=== PATIENT | male | born 1950 | race Caucasian/White ===

== ENCOUNTER 2020-03-04 15:27 | Outpatient (CLI) | payer MEDICARE, SELFPAY ==
--- NOTE | 2020-03-04 15:45 | USCV_ITS ---
Won Rogers Age: 70 Gender: M : 1950 Exam Date: 03/04/2020 15:48 Ordering Phys: Preston Whitaker MD ([email or web address]) Technologist: Neil Rosenthal [place] [facility] [place]: SOB CHEST PAIN BP: 140 / 86 HR: 82 Rhythm: Sinus Technical Quality: Fair MEASUREMENTS (Male / Female) Normal Values 2D ECHO LV Diastolic Diameter PLAX 3.7 cm 4.2 - 5.9 / 3.9 - 5.3 cm LV Systolic Diameter PLAX 2.3 cm IVS Diastolic Thickness 1.4 cm 0.6 - 1.0 / 0.6 - 0.9 cm IVS Systolic Thickness 1.6 cm LVPW Diastolic Thickness 1.3 cm 0.6 - 1.0 / 0.6 - 0.9 cm LVPW Systolic Thickness 1.6 cm LVOT Diameter 2.1 cm LV Ejection Fraction 2D Teich 70.2 % LV Ejection Fraction MOD 2C 76.2 % LV Ejection Fraction 2C AL 76.7 % LA Diameter 3.9 cm LA Width 2.6 cm LA Height 3.6 cm RA Width 2.8 cm RA Height 3.7 cm Aorta at Sinotubular Diameter 0.9 cm M-MODE LV Diastolic Diameter MM 6.4 cm 4.2 - 5.9 / 3.9 - 5.3 cm LV Systolic Diameter MM 3.6 cm LV Ejection Fraction MM Teich 73.6 % IVS Diastolic Thickness MM 1.0 cm 0.6 - 1.0 / 0.6 - 0.9 cm IVS Systolic Thickness MM 1.4 cm LVPW Diastolic Thickness MM 1.1 cm 0.6 - 1.0 / 0.6 - 0.9 cm LVPW Systolic Thickness MM 1.6 cm RV Diastolic Diameter MM 1.2 cm Aortic Annulus Diameter 3.7 cm LA Ao Ratio MM 1.1 MV E Point Septal Separation 1.0 cm DOPPLER AV Peak Velocity 136.0 cm/s LVOT Peak Velocity 86.0 cm/s AV Area Cont Eq vti 2.3 cm squared AV Area Cont Eq pk 2.1 cm squared MV Area PHT 5.0 cm squared Mitral E to A Ratio 1.0 MV E' Velocity 11.0 cm/s Mitral E to MV E' Ratio 9.4 Mitral E to LV E' Lateral Ratio 7.6 Mitral E to LV E' Septal Ratio 12.2 TR Peak Velocity 145.0 cm/s TR Peak Gradient 8.4 mmHg TV Peak E Velocity 97.0 cm/s Right Atrial Pressure 3.0 mmHg Pulmonary Artery Systolic Pressu 11.4 mmHg PV Peak Velocity 118.0 cm/s FINDINGS Left Ventricle Normal left ventricular cavity size. Normal left ventricular systolic function. No regional wall motion abnormalities. Left ventricular ejection fraction is estimated at 65 %. Grade I/IV diastolic dysfunction (abnormal relaxation filling pattern), normal to mildly elevated filling pressures. Right Ventricle The right ventricle is normal in size and function. Right Atrium The right atrium is normal in size. Left Atrium The left atrium is normal in size. Mitral Valve Structurally normal mitral valve without significant stenosis or prolapse. There is no mitral regurgitation. Aortic Valve Structurally normal aortic valve without significant sclerosis or stenosis. There is no aortic regurgitation. Tricuspid Valve Structurally normal tricuspid valve without significant stenosis or regurgitation. Pulmonary artery systolic pressure is normal. Pulmonic Valve Structurally normal pulmonic valve without significant stenosis. There is no pulmonic regurgitation. Pericardium Normal pericardium without effusion. Aorta Normal ascending aorta dimension. CONCLUSIONS 1-Normal left ventricular cavity size. Normal left ventricular systolic function. No regional wall motion abnormalities. Left ventricular ejection fraction is estimated at 65 %. Grade I/IV diastolic dysfunction (abnormal relaxation filling pattern), normal to mildly elevated filling pressures. 2-There is no pericardial effusion. 3-Pulmonary artery systolic pressure is within normal limits. 4-No significant valve abnormalities. 5-Right atrial pressure is around 5 mm of mercury. 6-No significant change since the prior echocardiogram study of 07/14/2016. Zuly Dai MD (Electronically Signed) Final Date: 04 March 2020 19:16 S
== END 2020-03-04 15:28 | disposition home or self-care (01) ==
LOC: US 15:28
PROVIDERS: Family Provider Family Medicine; PCP Family Medicine; Visit Provider Internal Medicine Cardiovascular Disease
DX: R06.02 Shortness of breath (principal); R07.9 Chest pain, unspecified
CPT/HCPCS: 93306

== ENCOUNTER 2020-05-28 09:12 | Outpatient (CLI) | payer MEDICARE, SELFPAY ==
[2020-05-28 09:23] VITALS: BMI 28.8
--- NOTE | 2020-05-28 09:33 | ECG_ITS ---
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 Interpretive Statements NAME OF STUDY: LEXISCAN SESTAMIBI STRESS TEST INDICATION: [Chest Pain, ] Procedure: At the baseline, the blood pressure was 144/64 mmHg, heart rate of 67 bpm. The electrocardiogram showed normal sinus bradycardia with left axis deviation with normal ST and T's. The Lexiscan was infused over a period of 20 seconds. A total of 0.4 mg of Lexiscan was infused. The stress phase was continued for a total of 5 minutes. Heart rate and blood pressure at stress levels are not available. The EKG at the peak infusion revealed sinus rhythm with no significant ST T wave changes. Sestamibi was injected 20 seconds after the Lexiscan was infused. Blood pressure and heart rates in recovery are not available. EKG at end of recovery phase showed normal sinus rhythm with no significant ST-T wave changes. Conclusion: 1. Normal EKG response to Lexiscan infusion. 2. No Lexiscan induced chest pain or cardiac arrhythmia. 3. Blood pressure and heart rates are not available for assessing stress response. 4. Sestamibi/sestamibi perfusion scan pending; see separate report. Electronically Signed On 06-02-2020 10:00:15 [facility] by Sb Tian M.D. [id number]
--- NOTE | 2020-05-28 09:34 | NMCV_ITS ---
NM juhi perf SPECT r/s* [id number] Won Rogers Age: 70 Gender: M : 1950 Exam Date: 05/28/2020 10:28 Ordering Phys: Tyrese Scherer MD Technologist: CHICO Espana Exam Location: [facility] Indications: CORONARY ARTERY DISEASE STRESS TEST Please [facility] IMAGE PROTOCOL Rest/Stress 1 Radiopharmaceutical Dose (mCi) Administration Site Administered by Rest: Tc-99m 11.0 IV CHICO Espana Sestamibi Stress:Tc-99m 32.9 IV CHICO Brooks Sestamibi Rest: 28-May-2020 60 Discovery 630 Stress: 28-May-2020 30 Discovery 630 SPECT RESULTS Technical Quality: Excellent Raw Data Analysis: Normal Image Corrections: Patient motion artifact - motion correction applied to stress images. Summed Stress Score: 12 Summed Rest Score: 3 Summed Difference Score: 9 PERFUSION FINDINGS There is a moderate in size, severe in intesity partially reversible perfusion defect in the inferior and inferolateral monahan. This likely represents prior infarct with periinfarct inschemia FUNCTIONAL RESULTS (calculated via Gated SPECT) Stress Image LV EF (%): 67 Stress EDV (mL):79 TID: 0.96 Stress ESV (mL):26 FUNCTIONAL FINDINGS: LV systolic function is normal with EF of 67% IMPRESSIONS 1) There is a moderate sized inferior and inferolateral wall partially reversible defect. This likely represents prior infarct with periinfarct ischemia. Clinical correlation is required 2) LV systolic function is normal with EF of 67% Sb Tian MD (Electronically Signed) Final Date: 01 June 2020 16:23 S
[2020-05-28] MEDS: regadenoson 0.4 Mg/5 ml Syringe IVP (11:21)
[2020-05-28 11:22] VITALS: BP 144/64; PULSE 87
== END 2020-05-28 09:13 | disposition home or self-care (01) ==
PROVIDERS: PCP Family Medicine; Visit Provider Family Medicine
DX: I25.10 Atherosclerotic heart disease of native coronary artery without angina pectoris (principal); R07.9 Chest pain, unspecified
CPT/HCPCS: 78452; 93017; A9500; J2785

== ENCOUNTER 2020-09-15 16:03 | Outpatient (CLI) | payer MEDICARE, SELFPAY ==
[2020-09-15 16:53] LABS: Basophils # 0.1 10^3/uL (0.0-0.1); Basophils % 0.7 %; Eosinophils # 0.2 10^3/uL (0.0-0.8); Eosinophils % 2.2 %; Hematocrit 44.8 % (42.0-52.0); Hemoglobin 14.5 g/dL (11.7-16.6); Lymphocytes % 19.4 %; Mean Corpuscular HGB Conc 32.4 g/dL (30.0-36.0); Mean Corpuscular Hemoglobin 31.3 pg (28.0-34.0); Mean Corpuscular Volume 96.6 fL (80-94); Mean Platelet Volume 9.9 fL (7.4-10.4); Monocytes # 0.7 10^3/uL (0.2-0.9); Neutrophils # 7.24 10^3/uL (1.8-7.7); Neutrophils % 70.3 %; Nucleated Red Blood Cells % 0 %; Platelet Count 304 10^3/cmm (130-400); Red Blood Count 4.64 10^6/uL (4.1-5.3); Red Cell Distribution Width 12.8 % (12.1-15.1); White Blood Count 10.3 10^3/uL (4.0-10.0)
[2020-09-15 17:04] LABS: Anion Gap 14.4 (5-19); Blood Urea Nitrogen 18 mg/dL (8-23); Calcium 8.9 mg/dL (8.5-10.5); Carbon Dioxide 27 mmol/L (22-29); Chloride 102 mmol/L (98-107); Glucose 97 mg/dL (65-115); Osmolality Calculated 290 mOsm/kg (285-295); Potassium 4.4 mmol/L (3.5-5.1); Sodium 139 mmol/L (136-145)
[2020-09-15 17:07] LABS: INR 1.13 (0.8-1.2)
== END 2020-09-15 16:04 | disposition home or self-care (01) ==
PROVIDERS: PCP Family Medicine; Visit Provider Internal Medicine
DX: I25.10 Atherosclerotic heart disease of native coronary artery without angina pectoris (principal)
CPT/HCPCS: 36415; 80048; 85025; 85610; 87635

== ENCOUNTER 2020-09-17 01:26 | Inpatient (IN) | payer MEDICARE, SELFPAY ==
[2020-09-17] VITALS (26 sets, daily range): BP systolic 93–185; BP diastolic 49–92; PULSE 72–122; RESP 16–28; TEMP 36.6–37.1; O2SAT 80–96; BMI 29.6
--- NOTE | 2020-09-17 01:27 | XR_ITS ---
WS: [id number] Exam: XR chest 1V portable [id number] Date/Time of Exam: 09/17/2020 1:28 AM Reason For Exam: sob Comparison with previous exams 10/03/2018, 06/28/2018 and 09/06/2016. Chronic appearing infiltrates in the bilateral lower lung zones. The lungs are fully expanded. Normal cardiomediastinal structures and bony elements. No pleural effusions. Recommendations: Short-term follow-up PA and lateral chest radiograph in 5-7 days might be considered for ongoing evaluation if felt to be clinically warranted. XR/XR chest 1V portable [id number] IMPRESSION: 1. Bibasal infiltrates which have been seen on multiple prior exams most likely chronic.
--- NOTE | 2020-09-17 01:40 | ECG_ITS ---
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1950 Requested By: Huong Yang Order Number: [id number] Reading MD: MELODY ALEX Measurements Intervals [place] Rate: 104 P: 73 KS: 182 QRS: -56 QRSD: 88 T: 86 QT: 314 QTc: 414 Interpretive Statements SINUS TACHYCARDIA LEFT AXIS DEVIATION [QRS AXIS < -30] PATTERN CONSISTENT WITH PULMONARY DISEASE Compared to ECG 06/27/2018 21:12:19 No significant changes Electronically Signed On 09-17-2020 20:08:02 LINSEED CAKE TRIMMER by MELODY ALEX [email or web address] regionVilant Systemslake [facility] - [id number] f
--- NOTE | 2020-09-17 01:43 | ED_ITS ---
HPI - COVID General: Chief Complaint: ER Hold Stated Complaint: covid symptoms Time Seen by Provider: 09/17/20 01:32 Source: patient Mode of arrival: ambulatory Limitations: no limitations Triage information: Has fever, cough or shortness of breath . No known COVID + exposure last 14 days History of Present Illness: HPI Narrative: 70-year-old male with a history of COPD states that over the last day he has been having a productive cough and increasing shortness of breath. States had low-grade fevers as well. He states 90 did not feel well and was feeling extremely short of breath. Patient's typically on 2 L. And here he is requiring 4 L at this time. He denies any known sick contacts. Denies any vomiting. States his dyspnea is much worse with exertion COVID 19 common symptoms: positive fever(s), chills, productive cough and dyspnea; negative headache(s), throat pain, nausea, vomiting or diarrhea COVID 19 other sytmptoms: negative chest pain COVID Results: SARS-CoV-2 Antigen (Rapid) Negative (Negative) 09/17/20 01:50 09/17/20 Nasal/Oral Coronavirus 2019 PCR Not detected 09/15/20 15:53 09/15/20 Review of Systems Const: Reports: fever(s) and chills Eyes: Denies: blurry vision or eye discomfort ENMT: Denies: throat pain or dental pain Card: Denies: chest pain Resp: Reports: dyspnea, productive cough and wheezing GI: Denies: abdominal pain, nausea, vomiting or diarrhea : Denies: dysuria Musc: Denies: neck pain or back pain Skin/Breast: Denies: rash Neuro: Denies: headache(s) Psych: Denies: depression Jose/Lymph: Denies: easy bruising All/Imm: Denies: urticaria PFSH ED PFSH: Medical History BPH (benign prostatic hyperplasia) CAD (coronary atherosclerotic disease) Carotid stenosis Cataract (lens) fragments in eye following cataract surgery Chronic constipation COPD (chronic obstructive pulmonary disease) Elevated PSA HTN (hypertension) Hyperlipemia, mixed PAD (peripheral artery disease) S/P angiogram of extremity TIA (transient ischemic attack) Tobacco abuse Surgical History S/P inguinal hernia repair S/P routine circumcision Family History Mother Cancer PANCREATIC CAD (coronary artery disease) Father Lung disease Social History Smoking and tobacco status: former smoker Alcohol intake: former Marital status: service: Yes branch: [employer] Current occupational status: retired Current gender identity: Male Dominga/Yazidi: Other Physical Exam Const: COMMON NORMALS: no acute distress, patient oriented x3 and healthy appearing HENMT: COMMON NORMALS: normocephalic and atraumatic HEAD & SCALP: normocephalic and atraumatic Eye: COMMON NORMALS: Equal, round and reactive pupils present and EOMs intact bilaterally PUPIL: Yes Equal, round and reactive pupils present Neck/C-Spine: COMMON NORMALS: full ROM and supple Chest: COMMONS NORMALS: normal inspection of the chest and normal palpation of entire chest wall Resp: COMMON NORMALS: No retractions, No use of accessory muscles and clear to auscultation bilaterally EFFORT & INSPECTION: Yes tachypneic AUSCULTATION: clear to auscultation bilaterally, rales on the right and wheezes Cardio: COMMON NORMALS: regular rate, regular rhythm and No murmurs present (Cardio) RATE: regular rate RHYTHM: regular rhythm GI: COMMON NORMALS: Normal to inspection, nondistended, normoactive bowel sounds present, Soft to palpation, non-tender and no masses PALPATION: Yes Soft to palpation Extremity: COMMON NORMALS: normal to inspection and full ROM Neuro: COMMON NORMALS: patient oriented x3, moves all extremities and no focal motor deficits Psych: COMMON NORMALS: mental status grossly normal, Normal thought process present and cooperative THOUGHT PROCESS: Normal thought process present Skin: COMMON NORMALS: no rashes or lesions noted and no wounds GENERAL SKIN EXAM: no rashes or lesions noted Course Vital Signs: Vital signs: Vital Signs Temperature 98.7 F 09/17/20 01:33 Pulse Rate 90 09/17/20 02:51 Respiratory Rate 25 H 09/17/20 02:51 Blood Pressure 93/49 09/17/20 02:51 Pulse Oximetry 96 09/17/20 02:51 MDM - COVID MDM Narrative: Medical decision making narrative: Patient presents here with a right lower lobe pneumonia and COPD. Patient does have an elevated white count. Patient's blood pressure here has been stable. Patient started IV to biotics and I spoke to hospitalist and will admit here. Patient's Covid is negative. Lab Data: Labs: Lab Results 09/17/20 09/17/20 09/17/20 Range/Units 01:50 01:50 01:50 WBC 17.7 H (4.0-10.0) 10^3/ uL RBC 4.80 (4.1-5.3) 10^6/u L Hgb 14.9 (11.7-16.6) g/dL Hct 44.9 (42.0-52.0) % MCV 93.5 (80-94) fL MCH 31.0 (28.0-34.0) pg MCHC 33.2 (30.0-36.0) g/dL RDW 12.5 (12.1-15.1) % Plt Count 268 (130-400) 10^3/c mm MPV 10.0 (7.4-10.4) fL Neut % (Auto) 84.8 % Lymph % (Auto) 7.5 % [place] % (Auto) 6.6 % Eos % (Auto) 0.3 % Baso % (Auto) 0.3 % Neut # (Auto) 15.02 H (1.8-7.7) 10^3/u L Lymph # (Auto) 1.3 (0.8-4.8) 10^3/u L [place] # (Auto) 1.2 H (0.2-0.9) 10^3/u L Eos # (Auto) 0.1 (0.0-0.8) 10^3/u L Baso # (Auto) 0.1 (0.0-0.1) 10^3/u L Nucleated RBC % (a uto) 0 % Nucleated RBCs # 0.0 /100WBC Specimen Type Sample Site ABG pH (7.35-7.45) ABG pCO2 (35-45) mmHg ABG pO2 (80.0-100.0) mmH g ABG HCO3 (22-26) mmol/L ABG Base Excess (-2.0-2.0) mmol/ L Husam Test Hematocrit (42-52) % Hgb O2 Saturation (95-100) % Carboxyhemoglobin (0.4-20.1) %THgb Methemoglobin (0.4-1.5) % Total Hemoglobin (14-18) g/dL O2 Delivery Device O2 Liters/Min % Forming Machine Upkeep Mechanic ID Lactic Acid (0.5-2.2) mmol/L Influenza Type A A g Negative (Negative) Influenza Type B A g Negative (Negative) SARS-CoV-2 Ag (Rap id) Negative (Negative) 09/17/20 09/17/20 Range/Units 01:58 02:30 WBC (4.0-10.0) 10^3/ uL RBC (4.1-5.3) 10^6/u L Hgb (11.7-16.6) g/dL Hct (42.0-52.0) % MCV (80-94) fL MCH (28.0-34.0) pg MCHC (30.0-36.0) g/dL RDW (12.1-15.1) % Plt Count (130-400) 10^3/c mm MPV (7.4-10.4) fL Neut % (Auto) % Lymph % (Auto) % [place] % (Auto) % Eos % (Auto) % Baso % (Auto) % Neut # (Auto) (1.8-7.7) 10^3/u L Lymph # (Auto) (0.8-4.8) 10^3/u L [place] # (Auto) (0.2-0.9) 10^3/u L Eos # (Auto) (0.0-0.8) 10^3/u L Baso # (Auto) (0.0-0.1) 10^3/u L Nucleated RBC % (a uto) % Nucleated RBCs # /100WBC Specimen Type Arterial Sample Site Radial, right ABG pH 7.46 H (7.35-7.45) ABG pCO2 32.2 L (35-45) mmHg ABG pO2 63.5 L (80.0-100.0) mmH g ABG HCO3 22.9 (22-26) mmol/L ABG Base Excess -0.2 (-2.0-2.0) mmol/ L Husam Test Pos Hematocrit 45.5 (42-52) % Hgb O2 Saturation 92.7 L (95-100) % Carboxyhemoglobin 1.2 (0.4-20.1) %THgb Methemoglobin 0.9 (0.4-1.5) % Total Hemoglobin 14.9 (14-18) g/dL O2 Delivery Device Nc O2 Liters/Min 4.0 % Forming Machine Upkeep Mechanic ID Harkr Lactic Acid 1.0 (0.5-2.2) mmol/L Influenza Type A A g (Negative) Influenza Type B A g (Negative) SARS-CoV-2 Ag (Rap id) (Negative) Imaging Data: CXR: Attestation: I personally reviewed and interpreted this imaging study as follows: My impression: rll infiltrate COVID Results: SARS-CoV-2 Antigen (Rapid) Negative (Negative) 09/17/20 01:50 09/17/20 Nasal/Oral Coronavirus 2019 PCR Not detected 09/15/20 15:53 09/15/20 Discharge Plan Discharge Patient Disposition: Admitted As Inpatient Admit Provider: Zuly Grajeda Clinical Impression: Pneumonia Qualifiers: Pneumonia type: due to unspecified organism Laterality: right Lung location: lower lobe of lung Qualified Code(s): J18.9 - Pneumonia, unspecified organism Condition: Stable Coding Level of Care Code ED Sap Pi Developer for Susie Fwd Exam Comprehensive
[2020-09-17] MEDS: albuterol 8 gm MDI 2 PUFF INHALATION (01:57)
[2020-09-17 02:09] LABS: ABG PCO2 32.2 mmHg (35-45); ABG PH Result 7.46 (7.35-7.45); Arterial Blood Gas Hematocrit 45.5 % (42-52); Base Excess ABG -0.2 mmol/L (-2.0-2.0); Blood Gas Allen Test Pos; Blood Gas Operator Identificat HARKR; Blood Gas Sample Site Radial, right; Blood Gas Sample Type Arterial; Carboxyhemoglobin 1.2 %THgb (0.4-20.1); HCO3 ABG 22.9 mmol/L (22-26); HGB O2 Sat 92.7 % (95-100); Methemoglobin 0.9 % (0.4-1.5); Oxygen Device NC; PO2 ABG 63.5 mmHg (80.0-100.0); Total Hemoglobin 14.9 g/dL (14-18)
[2020-09-17 02:14] LABS: Basophils # 0.1 10^3/uL (0.0-0.1); Basophils % 0.3 %; Eosinophils # 0.1 10^3/uL (0.0-0.8); Eosinophils % 0.3 %; Hematocrit 44.9 % (42.0-52.0); Hemoglobin 14.9 g/dL (11.7-16.6); Lymphocytes # 1.3 10^3/uL (0.8-4.8); Lymphocytes % 7.5 %; Mean Corpuscular HGB Conc 33.2 g/dL (30.0-36.0); Mean Corpuscular Volume 93.5 fL (80-94); Monocytes # 1.2 10^3/uL (0.2-0.9); Monocytes % 6.6 %; Neutrophils # 15.02 10^3/uL (1.8-7.7); Neutrophils % 84.8 %; Nucleated Red Blood Cells % 0 %; Platelet Count 268 10^3/cmm (130-400); Red Cell Distribution Width 12.5 % (12.1-15.1); White Blood Count 17.7 10^3/uL (4.0-10.0)
[2020-09-17] MEDS: cefTRIAXone 1,000 MG in sodium chloride 0.9% (plus) 50 ML 100 MG IV (02:16)
[2020-09-17 02:31] LABS: Influenza A by IFA Negative (Negative); Influenza B by IFA Negative (Negative); SARS Covid-2 Antigen Negative (Negative)
--- NOTE | 2020-09-17 02:40 | P.HP_ITS ---
Providers/Chief Complaint Primary Care Provider: Tyrese Scherer MD Chief Complaint: covid symptoms History of Present Illness Won Rogers is a 70 year old male with history of oxygen dependent COPD, uses 2 L of oxygen [id number] presented today with chief complaint of worsening shortness of breath. Patient is stating that today he started experiencing abdominal pain and subcostal region which gradually got worse, around noon he started experiencing rigors and chills he try to increase thermostat settings in his home but his chills were not getting better. Around evening he started feeling hot flashes. He has chronic cough he has not noticed increased in frequency or more sputum production but he does endorse chest congestion. No recent fever, sinus congestion or sick contacts. Is currently using nicotine lozenges, does not smoke at all. Is endorsing nausea but denying diarrhea. No headache, myalgias, endorsing swelling of lower extremities. Diagnosis in the ER revealed sepsis with tachypnea, leukocytosis, normal lactic acid right lower lobe pneumonia, he was given community-acquired pneumonia regimen antibiotic in the ER at the time of my evaluation he was saturating well on 4 L nasal cannula no active shortness of breath chest pain or any distress at the time my evaluation, BMP and BNP is pending at the time of this dictation Review of Systems Const: Reports: chills, body aches, change in appetite, fatigue and diaphoresis Eyes: Denies: change in vision ENMT: Denies: throat pain Card: Reports: swelling of feet/ankles; Denies: chest pain, dyspnea on exertion or orthopnea Resp: Reports: dyspnea and non-productive cough GI: Reports: abdominal pain, nausea and constipation; Denies: vomiting or diarrhea : Denies: flank pain Musc: Denies: neck pain Skin/Breast: Denies: rash Neuro: Denies: headache(s) Psych: Denies: anxiety Endo: Denies: polyuria Jose/Lymph: Denies: easy bruising All/Imm: Denies: urticaria Medications/Allergies Home Medications Medication Instructions Recorded Confirmed Last Taken Type fluticasone 250 mcg-salmeterol 50 1 inh INHALATION BID 07/31/19 08/06/20 Unknown History mcg/dose blistr powdr for inhalation latanoprost (PF) 0.005 % eye drops 1 drop OPHTHALMIC (EYE) DAILY ml 07/31/19 08/06/20 Unknown History potassium 99 mg tablet 198 mg PO DAILY tab 01/29/20 08/06/20 Unknown History ibuprofen 600 mg tablet 600 mg PO Q8H PRN 08/06/20 08/06/20 Unknown History amlodipine 10 mg tablet 10 mg PO DAILY #90 tab 09/02/20 Unknown Rx lisinopril 40 mg tablet 40 mg PO DAILY #90 tab 09/02/20 Unknown Rx Allergies Allergy/AdvReac Type Severity Reaction Status Date / Time Qfrgiqq-Tit-Wva Reductase Allergy Unknown Unknown Verified 08/06/20 14:35 Inhibitor PFSH Acute PFSH: Medical History BPH (benign prostatic hyperplasia) CAD (coronary atherosclerotic disease) Carotid stenosis Cataract (lens) fragments in eye following cataract surgery Chronic constipation COPD (chronic obstructive pulmonary disease) Elevated PSA HTN (hypertension) Hyperlipemia, mixed PAD (peripheral artery disease) S/P angiogram of extremity TIA (transient ischemic attack) Tobacco abuse Surgical History S/P inguinal hernia repair S/P routine circumcision Family History Mother Cancer PANCREATIC CAD (coronary artery disease) Father Lung disease Social History Smoking and tobacco status: former smoker Alcohol intake: former Marital status: service: Yes branch: [employer] Current occupational status: retired Current gender identity: Male Dominga/Anglican: Other Vitals/I&O/Wt Last Vital Signs Temp 98.7 F 09/17/20 01:33 Pulse 104 H 09/17/20 02:05 Resp 19 H 09/17/20 01:58 BP 185/92 09/17/20 01:51 Pulse Ox 94 09/17/20 01:58 Weight last 48 hrs Weight 88.451 kg Physical Exam Narrative: EXAM NARRATIVE: Elderly male currently saturating well on 4 L nasal cannula, appears stated age no active distress S1, S2 sinus rhythm no murmur appreciated Abdomen distended central obesity no tenderness Bilateral breath sounds with mild crackles at the base left greater than right I did not hear any wheezing stridor or rhonchi Lower extremity weak dorsalis pedis pulses Appropriate mood and affect No neurological deficit EOMI, PERRLA GCS 15 No joint swelling or pain Data : 09/17/20 02:30 09/17/20 02:30 Micro: Microbiology 09/17/20 02:25 Blood Culture - Preliminary Blood SPECIMEN COLLECTED 09/17/20 02:30 Blood Culture - Preliminary Blood SPECIMEN COLLECTED A&P Assessment and plan (1) Pneumonia: Status: Acute Qualifiers: Laterality: right Lung location: lower lobe of lung Pneumonia type: due to unspecified organism Qualified Code(s): J18.9 - Pneumonia, unspecified organism (2) Sepsis: Status: Acute (3) Acute and chronic respiratory failure with hypoxia: Status: Acute Additional A&P Information Sepsis secondary to community-acquired pneumonia Sepsis criteria met with tachypnea, tachycardia, leukocytosis, normal lactic acid Right lower lobe pneumonia, mild pulmonary vascular congestion noted as well, BMP and BNP is pending Would continue ceftriaxone and azithromycin, check urine antigens, blood cultures Covid antigen negative, influenza negative DuoNeb every 4 as needed Acute on chronic hypoxic respiratory failure: Patient currently is requiring 4 L at home he uses 2 L erlpif-gza-diltl, his most likely is secondary to community-acquired pneumonia, will rule out PE with D-dimer as he is low risk Hypertension: Continue amlodipine and lisinopril currently normotensive COPD exacerbation currently waiting for his nasal cannula oxygen more than his home requirement 2 L, anticipating improvement with antibiotics and prednisone Peripheral vascular disease status post stents: He has CT angiogram scheduled for next week No acute decompensation Would add aspirin and statins Full code DVT prophylaxis Lovenox Cardiac diet Attestations Medical Necessity Statement*: Anticipating stay in the hospital course more than 2 midnights for sepsis, community-acquired pneumonia Time Spent in Patient Care: (>than 50% of time spent in counselling and/or direct pt care on unit) . 50mins Coding Level of Care Code Acute Terrazzo Mechanic Helper for Yeng Fwd Diagnoses Pneumonia J18.9 Laterality: right Lung location: lower lobe of lung Pneumonia type: due to unspecified organism Sepsis A41.9 Acute and chronic respiratory failure with hypoxia J96.21
[2020-09-17] MEDS: azithromycin 500 MG in sodium chloride 0.9% 250 ML 250 MG IV (02:42)
[2020-09-17] MEDS: sodium chloride 0.9% 1,000 ML 999 ML IV (02:44)
[2020-09-17] MEDS: ondansetron 2 mg/ML SDV 2 mL 4 MG IVP (02:52)
[2020-09-17 03:21] LABS: Basophils # 0.1 10^3/uL (0.0-0.1); Basophils % 0.3 %; Eosinophils # 0.1 10^3/uL (0.0-0.8); Eosinophils % 0.4 %; Hematocrit 41.6 % (42.0-52.0); Hemoglobin 13.9 g/dL (11.7-16.6); Lymphocytes # 1.5 10^3/uL (0.8-4.8); Lymphocytes % 8.8 %; Mean Corpuscular HGB Conc 33.4 g/dL (30.0-36.0); Mean Corpuscular Hemoglobin 31.4 pg (28.0-34.0); Mean Corpuscular Volume 93.9 fL (80-94); Mean Platelet Volume 10.3 fL (7.4-10.4); Monocytes # 1.2 10^3/uL (0.2-0.9); Monocytes % 7.2 %; Neutrophils # 14.12 10^3/uL (1.8-7.7); Neutrophils % 82.9 %; Nucleated Red Blood Cells % 0 %; Platelet Count 251 10^3/cmm (130-400); Red Blood Count 4.43 10^6/uL (4.1-5.3); Red Cell Distribution Width 12.5 % (12.1-15.1)
[2020-09-17 03:40] LABS: Alanine Aminotransferase 16 U/L (0-41); Alkaline Phosphatase 110 IU/L (40-130); Aspartate Amino Transferase 22 U/L (0-40); Blood Urea Nitrogen 14 mg/dL (8-23); Calcium 8.8 mg/dL (8.5-10.5); Carbon Dioxide 22 mmol/L (22-29); Chloride 102 mmol/L (98-107); Globulin 2.9 g/dL (1.3-4.6); Glucose 133 mg/dL (65-115); NT Pro B Type Natriuretic Pept 59 pg/mL (0-125); Osmolality Calculated 280 mOsm/kg (285-295); Sodium 134 mmol/L (136-145); Total Bilirubin 1.2 mg/dL (0.15-1.2); Total Protein 6.9 g/dL (6.6-8.7)
[2020-09-17] MEDS: enoxaparin 40 mg/0.4 mL Syringe SUBCUT (04:10)
[2020-09-17] MEDS: ipratropium-albuterol 3 mL Neb INHALATION ×5 (05:28→23:36)
--- NOTE | 2020-09-17 07:37 | PC.NURSE ---
0700- Received report assumed care. No changes noted from report. Resting with lights off. No acute distress. Continue to monitor.
[2020-09-17] MEDS: azithromycin 250 mg Tablet 500 MG PO (09:04)
[2020-09-17] MEDS: amlodipine 10 mg Tablet PO (09:27)
[2020-09-17] MEDS: predniSONE 20 mg Tablet 40 MG PO (09:27)
[2020-09-17] MEDS: aspirin 81 mg EC Tablet PO (10:34)
[2020-09-17] MEDS: lisinopril 20 mg Tablet 40 MG PO (10:35)
--- NOTE | 2020-09-17 11:39 | PC.NURSE ---
Lisinopril dose Report received from ER Nurse. It was verbalized that only 20 mg lisinopril was given due to blood pressure being 116/61. MAR shows 40 mg lisinopril was administered. Blood pressure when patient presented to the floor was 112/57.
--- NOTE | 2020-09-17 12:08 | PC.NURSE ---
When giving schedule med Lisinopril 40 mg. Pt stated he PCP had increased his normal dose to 40 mg, his blood pressure was 116/61. Pt states 40 mg will drop my blood pressure to low. Only 20 mg was given. During report to floor nurse, it was reported that 20mg was given, not 40mg.
--- NOTE | 2020-09-17 13:57 | P.PN_ITS ---
Subjective Subjective: Interval history: History and physical reviewed. Won reports he is short of breath. He reports some chills at home but no fever. He denies any direct exposure to Covid, or personal history of Covid. Medications: Reviewed: Yes Vitals/I&O/Wt Last Vital Signs Temp 98.4 F 09/17/20 11:29 Pulse 84 09/17/20 11:29 Resp 16 09/17/20 11:29 BP 112/57 09/17/20 11:29 Pulse Ox 94 09/17/20 11:29 09/16/20 09/17/20 09/17/20 22:59 06:59 14:59 Intake Total 1300 / 1300 Output Total 300 / 300 Balance 1000 / 1000 Weight last 48 hrs Weight 88.451 kg Physical Exam Narrative: EXAM NARRATIVE: General exam is a white male in mild respiratory distress Cardiovascular regular in rhythm without murmur Lungs bilateral expiratory wheezes and a few coarse breath sounds bilaterally Abdomen is soft nontender with positive bowel sounds Extremities no cyanosis clubbing or edema Data : 09/17/20 02:30 09/17/20 02:30 Micro: Microbiology 09/17/20 04:36 Legionella Urinary Antigen - Final Urine,Voided Bacterial Antigens - Final 09/17/20 02:25 Blood Culture - Preliminary Blood SPECIMEN COLLECTED 09/17/20 02:30 Blood Culture - Preliminary Blood SPECIMEN COLLECTED A&P Assessment and plan (1) Pneumonia: Bibasilar pneumonia seen on chest x-ray Initiated Rocephin and azithromycin on admission Sputum culture Noted patient had a recent Covid PCR on the Note that BNP was normal Status: Acute Qualifiers: Laterality: right Lung location: lower lobe of lung Pneumonia type: due to unspecified organism Qualified Code(s): J18.9 - Pneumonia, unspecified organism (2) Sepsis: Antibiotics as above Blood cultures have been obtained Status: Acute (3) Acute and chronic respiratory failure with hypoxia: Usually on 2 to 3 L at home. Increased oxygen requirement needed on admission. Status: Acute Additional A&P Information Acute COPD exacerbation. Pulmonary toilet. Prednisone 40 mg daily. Wean oxygen as tolerated History of coronary artery disease and from what I understand a work-up is pending for Tuesday with angiogram per cardiology,, Dr. Tian. Placed on aspirin. Apparently intolerant of statins. Hypertension: Continue amlodipine and lisinopril currently normotensive COPD exacerbation currently waiting for his nasal cannula oxygen more than his home requirement 2 L, anticipating improvement with antibiotics and prednisone Full code DVT prophylaxis Lovenox Cardiac diet Attestations Medical Necessity Statement*: Needs continued hospital stay for treatment of acute COPD exacerbation. 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
[2020-09-17] MEDS: latanoprost 0.005% Op Soln 2.5 mL Btl 1 DROP EYE-BOTH (20:38)
[2020-09-18] VITALS (20 sets, daily range): BP systolic 109–148; BP diastolic 52–77; PULSE 63–105; RESP 17–20; TEMP 36.6–36.9; O2SAT 91–97
[2020-09-18] MEDS: cefTRIAXone 1,000 MG in sodium chloride 0.9% (plus) 50 ML 100 MG IV (02:12)
[2020-09-18] MEDS: enoxaparin 40 mg/0.4 mL Syringe SUBCUT (02:15)
[2020-09-18] MEDS: ipratropium-albuterol 3 mL Neb INHALATION ×5 (04:06→20:23)
[2020-09-18] MEDS: amlodipine 10 mg Tablet PO (08:01)
[2020-09-18] MEDS: azithromycin 250 mg Tablet 500 MG PO (08:01)
[2020-09-18] MEDS: lisinopril 20 mg Tablet 40 MG PO (08:01)
[2020-09-18] MEDS: aspirin 81 mg EC Tablet PO (08:01)
[2020-09-18] MEDS: predniSONE 20 mg Tablet 40 MG PO (08:01)
--- NOTE | 2020-09-18 09:13 | P.PN_ITS ---
Documented by User: Kanchan HuberYUE STDASTRID 09/18/20 09:32 Subjective Subjective: Interval history: Won reports he is doing okay. States his breathing is doing better. Has an appointment for angiogram with Dr. Tian tomorrow. Medications: Reviewed: Yes Vitals/I&O/Wt Last Vital Signs Temp 97.9 F 09/18/20 07:33 Pulse 76 09/18/20 08:55 Resp 18 09/18/20 08:47 BP 109/54 09/18/20 07:33 Pulse Ox 96 09/18/20 08:47 09/17/20 09/18/20 09/18/20 22:59 06:59 14:59 Intake Total 240 / 360 50 / 410 120 / 120 Output Total 200 / 200 350 / 550 Balance 40 / 160 -300 / -140 120 / 120 Weight last 48 hrs Weight 88.451 kg Physical Exam Narrative: EXAM NARRATIVE: General: white male in no apparent distress Cardiovascular: regular rate and rhythm, no murmur Lungs: slight coarse breath sounds bilaterally Abdomen: soft, nondistended, nontender to palpation, positive bowel sounds Lower extremities: no cyanosis or edema bilaterally Data : 09/17/20 02:30 09/17/20 02:30 Micro: Microbiology 09/17/20 02:25 Blood Culture - Preliminary Blood NEGATIVE TO DATE 09/17/20 02:30 Blood Culture - Preliminary Blood NEGATIVE TO DATE 09/17/20 04:36 Legionella Urinary Antigen - Final Urine,Voided Bacterial Antigens - Final A&P Assessment and plan (1) Pneumonia: Bibasilar pneumonia seen on chest x-ray Initiated Rocephin and azithromycin on admission Sputum culture Noted patient had a recent Covid PCR on the Note that BNP was normal Status: Acute Qualifiers: Laterality: right Lung location: lower lobe of lung Pneumonia type: due to unspecified organism Qualified Code(s): J18.9 - Pneumonia, unspecified organism (2) Sepsis: Antibiotics as above Blood cultures have been obtained, negative to date. Status: Acute (3) Acute and chronic respiratory failure with hypoxia: Usually on 2 to 3 L at home. Increased oxygen requirement needed on admission. Status: Acute Additional A&P Information Acute COPD exacerbation. Pulmonary toilet. Prednisone 40 mg daily. Wean oxygen as tolerated History of coronary artery disease. Has previously scheduled angiogram with Dr. Tian on 09/19. Placed on aspirin. Apparently intolerant of statins. 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 I reviewed with the patient as well. Medications: Reviewed: Yes Physical Exam Narrative: EXAM NARRATIVE: No changes needed from the exam above. I examined the patient as well. Data : 09/17/20 02:30 09/17/20 02:30 A&P Additional A&P Information Agree with above. Wean oxygen as tolerated. Patient symptomatically improving. White blood cell count elevation likely secondary to steroid use for his COPD exacerbation Cardiology to review and see if he is appropriate for angiogram tomorrow Attestations Medical Necessity Statement*: Needs continued hospitalization for further pulmonary toilet, close monitoring secondary to acute COPD exacerbation and respiratory failure requiring more oxygen than he normally is on at baseline. Coding Level of Care Code Acute Sales And Service Representative [facility] Diagnoses Pneumonia J18.9 Laterality: right Lung location: lower lobe of lung Pneumonia type: due to unspecified organism Sepsis A41.9 Acute and chronic respiratory failure with hypoxia J96.21
--- NOTE | 2020-09-18 15:44 | PC.RESP ---
PULMONARY REHAB INFORMATION SENT TO PATIENT.
[2020-09-18] MEDS: latanoprost 0.005% Op Soln 2.5 mL Btl 1 DROP EYE-BOTH (21:44)
[2020-09-19] VITALS (20 sets, daily range): BP systolic 110–158; BP diastolic 66–81; PULSE 58–93; RESP 16–21; TEMP 36.5–37.1; O2SAT 89–94
[2020-09-19] MEDS: cefTRIAXone 1,000 MG in sodium chloride 0.9% (plus) 50 ML 100 MG IV (02:56)
[2020-09-19] MEDS: enoxaparin 40 mg/0.4 mL Syringe SUBCUT (02:56)
[2020-09-19] MEDS: ipratropium-albuterol 3 mL Neb INHALATION (03:40)
[2020-09-19 05:34] LABS: Basophils % 0.1 %; Eosinophils % 0.1 %; Hematocrit 39.6 % (42.0-52.0); Hemoglobin 12.9 g/dL (11.7-16.6); Lymphocytes # 2.2 10^3/uL (0.8-4.8); Mean Corpuscular HGB Conc 32.6 g/dL (30.0-36.0); Mean Corpuscular Hemoglobin 31.9 pg (28.0-34.0); Mean Corpuscular Volume 97.8 fL (80-94); Mean Platelet Volume 10.5 fL (7.4-10.4); Neutrophils # 13.27 10^3/uL (1.8-7.7); Neutrophils % 79.6 %; Nucleated Red Blood Cells % 0 %; Platelet Count 271 10^3/cmm (130-400); Red Blood Count 4.05 10^6/uL (4.1-5.3); White Blood Count 16.7 10^3/uL (4.0-10.0)
[2020-09-19 05:55] LABS: Alanine Aminotransferase 18 U/L (0-41); Albumin Level 3.5 g/dL (3.5-5.2); Alkaline Phosphatase 80 IU/L (40-130); Anion Gap 16.9 (5-19); Aspartate Amino Transferase 24 U/L (0-40); Blood Urea Nitrogen 17 mg/dL (8-23); Calcium 8.6 mg/dL (8.5-10.5); Carbon Dioxide 25 mmol/L (22-29); Chloride 106 mmol/L (98-107); Globulin 2.8 g/dL (1.3-4.6); Glucose 100 mg/dL (65-115); Osmolality Calculated 300 mOsm/kg (285-295); Potassium 3.9 mmol/L (3.5-5.1); Sodium 144 mmol/L (136-145); Total Bilirubin 0.3 mg/dL (0.15-1.2); Total Protein 6.3 g/dL (6.6-8.7)
--- NOTE | 2020-09-19 06:18 | XACV_ITS ---
Exam Room: [facility] Ht: 173 cm Wt: 88 kg BSA: 2.08 m2 Gender: Male : 1950 Any Known Allergies: Other Exam Priority: Routine Procedure(s): Procedure Description: Diagnostic procedure Procedure Description: Left Heart Catheterization Procedure Description: Left ventriculography Procedure Description: Coronary Angiography Diagnostic Cath Status: Urgent Diagnostic Findings * No significant disease noted in the Left Main, LAD, Circumflex, or RCA coronary arteries. * Coronary angiography shows co-dominance. Conclusions 1. No significant disease noted in the Left Main, LAD, Circumflex, or RCA coronary arteries. 2. Normal left ventricular systolic function. Ejection fraction of 50%. Recommendations * Blood pressure control. * Outpatient cardiology follow up. Interventional RX Recommendation: medical therapy and/or counseling Diagnostic RX Recommendation: medical therapy and/or counseling Anticoagulation: Heparin Ventriculography Ejection Fraction: 50.0 % Pressures Phase:Rest AO : 109 / 50 ( 74 ) @ 1:32:00 AM 162 / 36 ( 90 ) @ 1:35:00 AM 118 / 43 ( 76 ) @ 1:40:00 AM 115 / 46 ( 74 ) @ 1:40:00 AM 119 / 52 ( 81 ) @ 1:40:00 AM LV : 120 / -8 / @ 1:39:00 AM 120 / -6 / @ 1:40:00 AM 122 / -7 / @ 1:40:00 AM Valves Phase:DefaultPhase AV : 3.0 @ 7:47:31 AM AV Mean Gradient: 8.0 @ 7:47:31 AM Clinical Evaluation EBL: 5mL-10mL Procedural Details Procedure Consent Obtained. Pre-Procedure Time Out. Identified patient by full name and date of as verbalized by the patient/guarantor. Does the consent match the physician's order: Yes. Accurate & Complete Informed Consent: Yes. Inpatient/Outpatient History & Physical on Chart: Yes. If H&P is completed, is and addenduem needed: No; If yes, is the addendum complete: N/A. Visualize and Verify Site with Patient/Guarantor: N/A. Relevant Radiology Images available: N/A. Pre-op teaching completed and patient verbalized understanding. The risks, benefits, and alternatives of sedation and/or procedure were discussed by physician. The patient agrees to continue. Procedure started. [facility] Clinical Fraility Score: 3: Managing Well. Die Maintenance Technician Indications: Suspected CAD, abnormal stress test. Chest Pain Symptom Assessment: Atypical Angina. Cardiovascular Instability: No. Correct patient, site and procedure confirmed by cath team. PERRLA. Strong, equal hand exploration manager bilaterally. Lungs clear x 5 lobes. IV Site on Arrival: 20 gauge in the left anticubital. IV Fluids: 0.9% NaCl at KVO. 0 mL infused prior to prosthetic lab technician. Pre Procedural Pulses: bilateral dorsalis pedis was Doppled. Pre Procedural Pulses: bilateral posterior tibial was Doppled. Pre Procedural Pulses: bilateral radial was 3+. Oxygen started at 2liters/min via nasal canula. Baseline sample Acquired. HR: 69 BPM. bilateral groins was prepped with chloroprep then draped in the usual sterile fashion. right radial was prepped with chloroprep then draped in the usual sterile fashion. Physician notified. Equipment: 6F - Radial. Physician arrived. Physician scrubbed in. Immediate Pre-Procedure Time Out. Correct Patient: Yes; Correct Procedure: Yes; Correct Site: Yes; Correct Patient Position: Yes; Correct Supplies: Yes; Dried Flammable Prep: Yes; Blood Products Available: N/A;. Lidocaine 1% infiltrated to the right radial. Arterial access obtained. A 5 pashto TIG catheter in over wire. Multiple views taken of left coronary artery. Catheter redirected to the RCA. Multiple views taken of right coronary artery. Catheter removed over the exchange wire. A 5 pashto Angled Pig catheter in over wire. EDP Sample taken: LV 120/-9,13; HR: 78 BPM; SpO2: 91%. LV gram performed in MELCHOR @ 10 mL/second for a total of 30 mL. EDP Sample taken: LV 120/-6,14; HR: 77 BPM; SpO2: 91%. Pullback taken: LV 122/-8,15; AO 118/43(76); Mean: 8mmHg, Peak to Peak: 3mmHg, SEP: 24sec/min; HR: 77 BPM; SpO2: 90%. Catheter removed over the exchange wire. Physician scrubbed out. A TR Band was successful obtaining hemostatsis at the Right Radial artery insertion site. TR band placed. Hemostasis obtained. Post Procedure: Pulses reassessed and unchanged. PERRLA. Strong, equal hand exploration manager bilaterally. No VTE prophylaxis required. Medication's Wasted: Lidocaine 1% = 18 mL. Medication's Wasted: Nitro = 49.8 mg. Medication's Wasted: Heparin = 1000 units. Total IV fluids: 50 mL. Contrast type used: Omnipaque 300 mgI/mL, 500 mL bottle. Post-op diagnosis: non obstructive CAD. Complications: none. Estimated blood loss: 5mL-10mL. Procedure completed. Patient transferred by wheelchair to CPRU. Vital chart was stopped. Access Site Site: Right Radial artery Sheath Size: 6 Fr Hemostasis Method: TR Band Hemostasis Success: Successful Procedure Medications Start: 7:08 AM Stop: 7:08 AM Medication: Benadryl Amount: 50 mg Route: I.V. Start: 7:20 AM Stop: 7:20 AM Medication: Fentanyl Amount: 50 mcg Route: I.V. Start: 7:24 AM Stop: 7:24 AM Medication: Versed Amount: 1 mg Route: I.V. Start: 7:24 AM Stop: 7:24 AM Medication: Fentanyl Amount: 50 mcg Route: I.V. Start: 7:29 AM Stop: 7:29 AM Medication: Nitrogylcerin Amount: 200 mcg Route: I.A. Start: 7:31 AM Stop: 7:31 AM Medication: Heparin Amount: 5000 units Route: I.V. I, the attending physician, have reviewed and verified all procedure medications. Yes, all medications given per verbal order History/Risk Factors Hypertension: Yes Dyslipidemia: Yes Peripheral Arterial Disease (PAD): Yes Myocardial Infarction (SC): No Obesity: No Renal Disease: No Tobacco Use: Former Prior Interventions PCI: No CABG: No Valve Surgery: No Report Signatures Finalized by Sb Tian MD on 09/28/2020 02:11 PM
--- NOTE | 2020-09-19 07:41 | PC.NURSE ---
AT APPROX 0720 PT WAS TAKEN TO SALES SPECIAL AGENT FOR HIS ANGIOGRAM
--- NOTE | 2020-09-19 08:00 | PC.NURSE ---
Hematoma Pt received from [facility] via w/c, hematoma present above TR band on R wrist. 2nd TR band applied at this time. Radial pulse present. Will monitor.
--- NOTE | 2020-09-19 09:04 | PC.NURSE ---
TR Band 2ml air released from 2nd TR band at this time per protocol. Will monitor.
--- NOTE | 2020-09-19 10:39 | PC.NURSE ---
TR Band Off TR band removed at this time per protocol. No c/o pain. Hematoma boarders marked, no further bleeding noted. Will continue to monitor.
--- NOTE | 2020-09-19 11:25 | PC.NURSE ---
Report called Report called to second floor nurse, all questions answered. Pt transferred back to second floor at this time via w/c.
--- NOTE | 2020-09-19 13:36 | PM.DCS ---
Discharge Providers Date of Admission: 09/17/20 03:04 Date of Discharge: September 19, 2020 Attending Provider at Admission: Zuly Grajeda MD Attending Provider at Discharge: Fuad Campbell MD Primary Care Provider: Tyrese Scherer MD Diagnoses at Discharge Discharge Diagnosis (1) Pneumonia: Status: Acute Qualifiers: Laterality: right Lung location: lower lobe of lung Pneumonia type: due to unspecified organism Qualified Code(s): J18.9 - Pneumonia, unspecified organism (2) Sepsis: Status: Acute (3) Acute and chronic respiratory failure with hypoxia: Status: Acute Reason for Visit Reason for Visit: covid symptoms Hospital Course Hospital Course Won is a 70-year-old white male who presented to the hospital with shortness of breath. He was evaluated in the emergency department and found to have a bibasilar pneumonia, and COPD exacerbation. Rapid Covid was negative as was influenza. He had a very recent Covid on September 15 PCR that was negative as well. With prednisone, pulmonary toilet, and oxygen COPD exacerbation gradually improved. He did undergo angiogram on September 18 secondary to an abnormal stress test. This had previously been scheduled as an outpatient. No flow-limiting disease was noted. Following the angiogram no complications were noted. Angiogram site without significant hematoma. I reviewed his pulmonary status and he was feeling as if he could go back to home and was near his baseline. He was saturating greater than 90% on 3 L. I discussed with him not smoking, taking all medicine as prescribed, and added DuoNeb and a nebulizer to his COPD treatment. Pulmonary rehabilitation could be considered on as an outpatient. He will follow-up with his primary care provider as well as cardiology. He will finish 3 more days of prednisone, 7 days of Levaquin. Physical Exam Narrative: EXAM NARRATIVE: General exam no apparent distress Cardiovascular regular rate and rhythm without murmur Lungs diminished breath sounds bilaterally but clear Abdomen is soft with positive bowel sounds Extremities no cyanosis clubbing or edema, no significant hematoma right wrist. Discharge Data Data Completed and Pending: Completed Studies During Hospitalization Category Date Time Status XR chest 1V mauri ble [id number] Stat Exams 09/17/20 01:27 Completed Pending at discharge Category Date Time Status SPINNER [employer]DRA[employer] request for service Routin e Exams 09/19/20 06:18 Taken Blood Culture Sta t Lab 09/17/20 02:25 Results Sputum Culture an d Gram Stain Routi sc Lab 09/17/20 13:59 Uncollected Labs from last 24 hours 09/19/20 09/19/20 04:43 04:43 WBC 16.7 H RBC 4.05 L Hgb 12.9 Hct 39.6 L MCV 97.8 H MCH 31.9 MCHC 32.6 RDW 13.0 Plt Count 271 MPV 10.5 H Neut % (Auto) 79.6 Lymph % (Auto) 13.0 Wharton % (Auto) 6.0 Eos % (Auto) 0.1 Baso % (Auto) 0.1 Neut # (Auto) 13.27 H Lymph # (Auto) 2.2 Wharton # (Auto) 1.0 H Eos # (Auto) 0.0 Baso # (Auto) 0.0 Nucleated RBC % (a uto) 0 Nucleated RBCs # 0.0 Sodium 144 Potassium 3.9 Chloride 106 Carbon Dioxide 25 Anion Gap 16.9 BUN 17 Creatinine 0.7 GFR Calculation Not Reportable Glucose 100 Calculated Osmolal ity 300 H Calcium 8.6 Total Bilirubin 0.3 AST 24 ALT 18 Alkaline Phosphata se 80 Total Protein 6.3 L Albumin 3.5 Globulin 2.8 Vitals: Last Vital Signs Temp 98.7 F 09/19/20 12:00 Pulse 63 09/19/20 12:00 Resp 18 09/19/20 12:00 BP 133/67 09/19/20 12:00 Pulse Ox 91 09/19/20 12:00 Discharge Plan Discharge Patient Disposition: Home Condition: Stable Prescriptions: New ipratropium-albuterol 0.5 mg-3 mg(2.5 mg base)/3 mL solution for nebulization 3 ml inhalation Q6H Qty: 180 RF: 0 prednisone 20 mg Tablet 40 mg PO DAILY Qty: 6 RF: 0 levofloxacin 750 mg tablet 750 mg PO DAILY 7 Days Qty: 7 RF: 0 Continued fluticasone propion-salmeterol [Advair Diskus] 250-50 mcg/dose blister with device 1 inh INHALATION BID RF: 0 latanoprost 0.005 % drops 1 drp ophthalmic (eye) BEDTIME RF: 0 Vitamin C 1,000 mg Tablet 1,000 mg PO DAILY RF: 0 amlodipine 5 mg tablet 5 mg PO BID@ RF: 0 lisinopril 40 mg Tablet 20 mg PO BID@ RF: 0 Vitamin D3 25 mcg (1,000 unit) Capsule See Rx Instructions .ROUTE .COMPLEX RF: 0 potassium gluconate 595 mg (99 mg) Tablet 595 mg PO BID@ RF: 0 calcium 1 tab PO PRN RF: 0 Discontinued ibuprofen 200 mg Tablet 800 mg PO BID PRN (Reason: Pain) RF: 0 Discharge Orders: Discharge Order (Routine); Ordered 09/19/20 Ordered By: Fuad Campbell Other Ambulatory Orders: DME: Nebulizer with Neb Kit (Order) Location: None Selected Ordered By: Fuad Campbell Referrals: [facility] [Outside] Sb Tian M.D [Physician] - 7-10 days (follow up angiogram) Tyrese Scherer MD [Primary Care Provider] - 4-7 days Discharge Diet: Cardiac Discharge Activity: Increase activity as tolerated Patient Instructions: Left Heart Catheterization (DC) Activity Restrictions/Additional Instructions: Take all medicine as prescribed Discharge Attestations Time Spent in Discharge Care*: greater than 30 min Quality Metrics Clinical Quality Measures During this hospital stay, did patient experience: None Coding Level of Care Code Acute Vp Outcomes for g Fwd Diagnoses Pneumonia J18.9 Laterality: right Lung location: lower lobe of lung Pneumonia type: due to unspecified organism Sepsis A41.9 Acute and chronic respiratory failure with hypoxia J96.21
--- NOTE | 2020-09-19 13:50 | PC.NURSE ---
AT APPROX 1130 PT ARRIVED BACK TO THE FLOOR FROM [facility]
== END 2020-09-19 15:00 | disposition home or self-care (01) | DRG 871 ==
LOC: ER 02:50 → ER IP 03:04 → MEDSURG 09:28
PROVIDERS: Internal Medicine; Admitting Provider Internal Medicine; Emergency Provider Emergency Medicine; PCP Family Medicine; Visit Provider Internal Medicine
PROC: 4A023N7 Measurement of Cardiac Sampling and Pressure, Left Heart, Percutaneous Approach (ICD-10-PCS; principal; 2020-09-19 07:00)
DX: A41.9 Sepsis, unspecified organism (principal); J96.21 Acute and chronic respiratory failure with hypoxia; J18.9 Pneumonia, unspecified organism; J44.0 Chronic obstructive pulmonary disease with (acute) lower respiratory infection; J44.1 Chronic obstructive pulmonary disease with (acute) exacerbation; I25.10 Atherosclerotic heart disease of native coronary artery without angina pectoris; Z88.8 Allergy status to other drugs, medicaments and biological substances; Z99.81 Dependence on supplemental oxygen; N40.0 Benign prostatic hyperplasia without lower urinary tract symptoms; I65.29 Occlusion and stenosis of unspecified carotid artery; K59.09 Other constipation; R97.20 Elevated prostate specific antigen [PSA]; I10 Essential (primary) hypertension; E78.5 Hyperlipidemia, unspecified; I73.9 Peripheral vascular disease, unspecified; Z86.73 Personal history of transient ischemic attack (TIA), and cerebral infarction without residual deficits; Z87.891 Personal history of nicotine dependence; Z95.820 Peripheral vascular angioplasty status with implants and grafts
CPT/HCPCS: 12345; 36415; 36600; 71045; 80048; 80053; 82805; 83605; 83880; 85025; 85610; 86403; 87040; 87426; 87449; 87635; 87804; 93005; 93452; 94640; 96365; 96367; 96372; 96375; 99285; C1769; C1887; C1894; J0456; J0696; J1200; J1644; J1650; J2250; J2405; J2930; J3010; J3490; J3535; J7030; J7050; J7512; Q0144; Q9967

== ENCOUNTER 2020-11-05 10:52 | Outpatient (CLI) | payer MEDICARE, SELFPAY ==
[2020-11-05 11:26] LABS: Basophils # 0.1 10^3/uL (0.0-0.1); Basophils % 0.5 %; Eosinophils # 0.1 10^3/uL (0.0-0.8); Eosinophils % 0.5 %; Hematocrit 46.7 % (42.0-52.0); Lymphocytes # 1.4 10^3/uL (0.8-4.8); Lymphocytes % 12.3 %; Mean Corpuscular HGB Conc 32.1 g/dL (30.0-36.0); Mean Corpuscular Hemoglobin 31.1 pg (28.0-34.0); Mean Corpuscular Volume 96.9 fL (80-94); Mean Platelet Volume 9.7 fL (7.4-10.4); Monocytes # 0.6 10^3/uL (0.2-0.9); Monocytes % 5.1 %; Neutrophils # 9.28 10^3/uL (1.8-7.7); Neutrophils % 80.6 %; Nucleated Red Blood Cells % 0 %; Platelet Count 319 10^3/cmm (130-400); Red Blood Count 4.82 10^6/uL (4.1-5.3); Red Cell Distribution Width 12.6 % (12.1-15.1); White Blood Count 11.5 10^3/uL (4.0-10.0)
[2020-11-06 17:42] LABS: Alternaria Alternata (M6) Ige <0.10 kU/L; Alternaria Class 0; Bermuda Class 0; Bermuda Grass (G2) Ige <0.10 kU/L; Cat Dander (E1) Ige <0.10 kU/L; Cat Dander Class 0; Common Ragweed (Short) (W1) Ig <0.10 kU/L; D. Farinae Class 0; Dermatophagoides Class 0; Dermatophagoides Farinae (D2) <0.10 kU/L; Dermatophagoides Pteronyssinus <0.10 kU/L; Dog Dander (E5) Ige <0.10 kU/L; Dog Dander Class 0; Elm (T8) Ige <0.10 kU/L; Elm Class 0; English Plantain (W9) Ige <0.10 kU/L; English Plantain Class 0; House Dust (Greer) (H1) Ige <0.10 kU/L; House Dust (Hollister- Stier) <0.10 kU/L; House Dust Class 0; Immunoglobulin E 5 kU/L (<OR=114); Johnson Grass (G10) Ige <0.10 kU/L; Johnson Grass Cl 0; June Grass Class 0; June Grass(Kentucky Blue) (G8) <0.10 kU/L; Lamb'S Quarters (Goose Foot) <0.10 kU/L; Lamb'S Quarters Class 0; Maple (Box Elder) (T1) Ige <0.10 kU/L; Maple Class 0; Meadow Fescue (G4) Ige <0.10 kU/L; Meadow Fescue Class 0; Mucor Racemosus Class 0; Oak (T7) Ige <0.10 kU/L; Oak Class 0; Orchard Grass (Cocksfoot) (G3) <0.10 kU/L; Penicillium Class 0; Penicillium Notatum (M1) Ige <0.10 kU/L; Perennial Rye Grass (G5) Ige <0.10 kU/L; Perennial Rye Grass Class 0; Ragweeed Class 0; Rough Marsh Elder (W16) Ige <0.10 kU/L; Rough Marsh Elder Class 0; Sweet Vernal Class 0; Sweet Vernal Grass (G1) Ige <0.10 kU/L; Timothy Grass (G6) Ige <0.10 kU/L; Timothy Grass Class 0
[2020-11-07 19:56] LABS: Aspergillus Fumigatus, Igg Ab, 64.2 mg/L (<=102)
== END 2020-11-05 10:53 | disposition home or self-care (01) ==
LOC: LAB 11:01
PROVIDERS: PCP Family Medicine; Visit Provider Internal Medicine Pulmonary Disease
DX: J44.9 Chronic obstructive pulmonary disease, unspecified (principal); R06.02 Shortness of breath; J30.2 Other seasonal allergic rhinitis
CPT/HCPCS: 36415; 82785; 85025; 86003

== ENCOUNTER → 2020-11-20 13:33 | Outpatient (BNVA) | payer MEDICARE, SELFPAY | PROVIDERS: PCP Family Medicine; Visit Provider Internal Medicine Pulmonary Disease | DX: Z20.822 Contact with and (suspected) exposure to COVID-19 (principal) | CPT/HCPCS: 87635 ==

== ENCOUNTER 2020-11-24 07:47 | Outpatient (CLI) | payer MEDICARE, SELFPAY ==
--- NOTE | 2020-11-24 07:57 | CT_ITS ---
WS: [id number] LDCT LUNG CANCER SCREENING TECHNIQUE: Noncontrast CT of the chest with coronal and sagittal reformatted images. CLINICAL INFORMATION: NICOTINE DEPENDENCE,CIGARETTES COMPARISON: None. DLP: 60.13 mGy.cm DIvol: 1.[address] scans at [facility] use at least one of these dose optimization techniques: automat ed exposure control; mA and/or kV adjustment per patient size (includes targeted exams where dose is matched to clinical indication); or iterative reconstruction. FINDINGS: Mild chronic emphysematous changes. No acute pulmonary infiltrates. No consolidation or pleural fluid . No mediastinal or hilar lymphadenopathy. Aortic calcification. Coronary calcification. No axillary lymphadenopathy. Adrenal glands are normal. Normal GE junction. Tiny 2 mm nodule right upper lobe. Hare bsegmental atelectasis the lung bases. CT/CT lung screening [id number] IMPRESSION: LUNG-RADS: 2-Benign Appearance or Behavior FOLLOW UP: 12 Month: Continue annual screening with LDCT
--- NOTE | 2020-11-24 09:53 | PFTS_ITS ---
Date of Study:11/24/20 Date of Dictation: MECHANICS: Forced vital capacity (FVC) is normal. Forced expiratory volume in one second (FEV1) is reduced. FEV1/FVC is reduced. FLOW VOLUME LOOP: Reduced flow at all lung volumes with significant scooping. LUNG VOLUMES: Total lung capacity (TLC) is reduced. Residual volume (RV) is reduced. DIFFUSING CAPACITY FOR CARBON MONOXIDE: Severely reduced. INTERPRETATION: The postbronchodilator spirometry is consistent with moderate airflow obstruction. There is no significant postbronchodilator response. The lung volumes are consistent with restrictive lung disease. Gas exchange (DLCO) is severely reduced. MTDD
== END 2020-11-24 07:48 | disposition home or self-care (01) ==
LOC: RAD 07:50
PROVIDERS: PCP Family Medicine; Visit Provider Internal Medicine Pulmonary Disease
DX: Z12.2 Encounter for screening for malignant neoplasm of respiratory organs (principal); F17.210 Nicotine dependence, cigarettes, uncomplicated; J44.9 Chronic obstructive pulmonary disease, unspecified; J30.2 Other seasonal allergic rhinitis
CPT/HCPCS: 71271; 94060; 94618; 94726; 94729; J7611

== ENCOUNTER 2020-12-15 14:22 | Outpatient (CLI) | payer MEDICARE, SELFPAY ==
[2020-12-15 15:46] LABS: C Reactive Protein 7.1 mg/L (0.0-4.9)
[2020-12-15 16:01] LABS: Erythrocyte Sedimentation Rate 19 mm/hr (0-10)
[2020-12-16 12:13] LABS: Anti-Double Strand DNA AB <1 IU/mL; Centromere B Antibody <1.0 NEG AI (<1.0 NEG); Cyclic Citrullinated Peptide <16 UNITS; JO-1 Antibody <1.0 NEG AI (<1.0 NEG); SS A Ro Sjogrens Antibody 1.2 POS AI (<1.0 NEG); SS-B/LA IGG <1.0 NEG AI (<1.0 NEG); Sm/RNP Antibody <1.0 NEG AI (<1.0 NEG); Smith Antibody <1.0 NEG AI (<1.0 NEG)
== END 2020-12-15 14:23 | disposition home or self-care (01) ==
LOC: LAB 14:33
PROVIDERS: PCP Family Medicine; Visit Provider Internal Medicine Pulmonary Disease
DX: R06.00 Dyspnea, unspecified (principal); J98.4 Other disorders of lung
CPT/HCPCS: 36415; 85651; 86140; 86225; 86235; 86431

== ENCOUNTER 2021-01-01 14:11 | Outpatient (CLI) | payer MEDICARE, SELFPAY | END 2021-01-01 14:12 | disposition home or self-care (01) | PROVIDERS: PCP Family Medicine; Visit Provider Internal Medicine Pulmonary Disease | DX: R06.00 Dyspnea, unspecified (principal); J98.4 Other disorders of lung | CPT/HCPCS: 36415; 83516 ==

== ENCOUNTER → 2021-11-06 08:51 | Outpatient (BNVA) | payer MEDICARE, SELFPAY | PROVIDERS: PCP Family Medicine; Visit Provider Nurse Practitioner Family | DX: I10 Essential (primary) hypertension (principal); Z87.891 Personal history of nicotine dependence | CPT/HCPCS: 99213 ==

== ENCOUNTER → 2021-12-14 14:09 | Outpatient (BNVA) | payer MEDICARE, SELFPAY | PROVIDERS: PCP Family Medicine; Visit Provider Internal Medicine Pulmonary Disease | DX: J43.2 Centrilobular emphysema (principal); J30.2 Other seasonal allergic rhinitis; R06.00 Dyspnea, unspecified; Z12.2 Encounter for screening for malignant neoplasm of respiratory organs; Z71.6 Tobacco abuse counseling; I10 Essential (primary) hypertension; E78.5 Hyperlipidemia, unspecified; Z99.81 Dependence on supplemental oxygen; Z87.891 Personal history of nicotine dependence | CPT/HCPCS: 99214 ==

== ENCOUNTER 2022-02-01 10:21 | Emergency (ER) | payer MEDICARE, SELFPAY ==
[2022-02-01 10:51] VITALS: BP 135/71; PULSE 108; RESP 20; TEMP 37.9; O2SAT 91; BMI 29.3
--- NOTE | 2022-02-01 12:08 | ED_ITS ---
HPI - General Adult General: Chief complaint: General Medical Stated complaint: ABd pains, sob, fever Time Seen by Provider: 02/01/22 11:40 History of Present Illness: Patient is a 72-year-old male with a history of chronic bronchitis and emphysema on 3L of oxygen at baseline, hypertension who presents the emergency room for evaluation of generalized body ache, cough, left lower quadrant dull pain, nausea, and fatigue x3 days. Patient tells me that he has had intermittent cough shortness of breath and cough for the last 2 weeks that has acutely worsened last 3 days. In addition, patient reports fever and chills at home. Patient denies any sick contact. Denies any loss of taste or smell. Patient also denies any diarrhea. Patient denies any nausea or vomiting or pain with p.o. intake. Patient has intermittent left upper quadrant abdominal pain for the last 3 days. In the past, patient has had history of pneumonia most recently last year for which he was hospitalized with oxygen. Onset: 3 days ago Duration:3 days Location:home Severity:moderate Associated symptoms: Reports malaise; Deny chest pain, dyspnea, nausea, rash, palpitations or vomiting Review of Systems Const: Reports: fever(s), chills, fatigue, malaise and other (+generalized weakness) Eyes: Denies: change in vision ENMT: Denies: mouth pain Card: Denies: chest pain or palpitations Resp: Reports: non-productive cough; Denies: dyspnea GI: Denies: abdominal pain, nausea, vomiting or diarrhea : Denies: dysuria Musc: Denies: extremity pain Skin/Breast: Denies: rash or new lesions Neuro: Denies: weakness in extremities Psych: Reports: other (Normal mood) Jose/Lymph: Denies: easy bruising PFS ED PFSH: Medical History BPH (benign prostatic hyperplasia) CAD (coronary atherosclerotic disease) Carotid stenosis Cataract (lens) fragments in eye following cataract surgery Chronic constipation COPD (chronic obstructive pulmonary disease) Elevated PSA HTN (hypertension) Hyperlipemia, mixed PAD (peripheral artery disease) S/P angiogram of extremity TIA (transient ischemic attack) Tobacco abuse Surgical History S/P inguinal hernia repair S/P routine circumcision Family History Mother Cancer PANCREATIC CAD (coronary artery disease) Father Lung disease Social History Smoking and tobacco status: former smoker Quit status (tobacco): has quit using tobacco Year quit tobacco: 2016 [id number] Second hand smoke exposure: Yes Smoking risk assessment/counseling performed?: Yes Alcohol intake: former Year of sobriety/quit date alcohol: 1986 Lives independently: Yes Housing: House Marital status: Number of children: 0 Highest education level completed: Some College, No Degree service: Yes branch: [employer] Current occupational status: retired Pets and animals: No History of recent travel: No Current gender identity: Male Dominga/Cheondoism: Other Physical Exam Const: COMMON NORMALS: alert HENMT: COMMON NORMALS: atraumatic HEAD & SCALP: atraumatic MOUTH: moist mucous membranes not abnormal Eye: COMMON NORMALS: EOMs intact bilaterally and conjunctivae normal CONJUNCTIVA: Yes conjunctivae normal Neck/C-Spine: COMMON NORMALS: full ROM and supple Resp: COMMON NORMALS: normal respiratory effort and clear to auscultation bilaterally AUSCULTATION: clear to auscultation bilaterally Cardio: COMMON NORMALS: regular rate RATE: regular rate GI: COMMON NORMALS: Soft to palpation and non-tender PALPATION: Yes Soft to palpation Extremity: COMMON NORMALS: full ROM Neuro: SENSORIUM/ORIENTATION: Yes alert MOTOR EXAM: No Abnormal motor strength present and Other motor observations present (no focal motor deficits) Psych: COMMON NORMALS: speech normal SPEECH: Yes normal speech MOOD & AFFECT: Yes euthymic mood Course Vital Signs: Vital signs: Vital Signs Temperature 98.9 F 02/01/22 15:07 Pulse Rate 84 02/01/22 15:07 Respiratory Rate 20 H 02/01/22 10:51 Blood Pressure 146/66 02/01/22 15:07 Pulse Oximetry 94 02/01/22 15:07 [facility] - General Adult Medical Decision Making 72-year-old male with history of chronic bronchitis and emphysema on 3L of ox ygen at baseline, prior pneumonia, hypertension presenting to the emergency room with 3 days of dyspnea, generalized weakness, malaise, fever and chills, and body aches. On physical exam, patient is hemodynamically stable without any signs of respiratory distress. Lungs appear clear bilaterally. Patient is noted to have white count 21.3 up from baseline of 13K to 17K. X-ray did not show any focal pneumonia. However patient is noted to have bilateral atelectasis. In setting of low-grade fever and elevated white count prior history of pneumonia, will cover patient apparently with antibiotics. Patient received Augmentin doxycycline in the emergency room. Patient initially was observed to set it be satting at 91 to 92% on room air. However 3 L oxygen, patient is at baseline with O2 sats between 94 to 95%. Rx doxycycline and augmentin for early pneumonia Disposition: Discharge. Patient counseled regarding diagnostic impression, treatment plan. Patient given ED strict return precautions to return for continuation, worsening, or development of new symptoms. Instructed to f/u w/ P CP regarding symptoms today. Patient verbalized understanding. Patient is given strict return precaution for any signs of worsening symptoms including fever, respiratory distress, or any external complaints. Lab Data : 02/01/22 11:52 02/01/22 11:52 Radiology Impressions Chest X-Ray 02/01/22 12:14 IMPRESSION: Mild bibasilar subsegmental atelectasis. Laboratory Results WBC 21.3 10^3/uL (4.0-10.0) H 02/01/22 11:52 RBC 5.18 10^6/uL (4.1-5.3) 02/01/22 11:52 Hgb 16.1 g/dL (11.7-16.6) 02/01/22 11:52 Hct 49.2 % (42.0-52.0) 02/01/22 11:52 MCV 95.0 fl (80-94) H 02/01/22 11:52 MCH 31.1 pg (28.0-34.0) 02/01/22 11:52 MCHC 32.7 g/dL (30.0-36.0) 02/01/22 11:52 RDW 12.8 % (12.1-15.1) 02/01/22 11:52 Plt Count 273 10^3/cmm (130-400) 02/01/22 11:52 MPV 10.0 fL (7.4-10.4) 02/01/22 11:52 Neut % (Auto) 87.6 % 02/01/22 11:52 Lymph % (Auto) 4.6 % 02/01/22 11:52 [place] % (Auto) 6.7 % 02/01/22 11:52 Eos % (Auto) 0.1 % 02/01/22 11:52 Baso % (Auto) 0.3 % 02/01/22 11:52 Neut # (Auto) 18.69 10^3/uL (1.8-7.7) H 02/01/22 11:52 Lymph # (Auto) 1.0 10^3/uL (0.8-4.8) 02/01/22 11:52 [place] # (Auto) 1.4 10^3/uL (0.2-0.9) H 02/01/22 11:52 Eos # (Auto) 0.0 10^3/uL (0.0-0.8) 02/01/22 11:52 Baso # (Auto) 0.1 10^3/uL (0.0-0.1) 02/01/22 11:52 Nucleated RBC % (auto) 0 % 02/01/22 11:52 Nucleated RBCs # 0.0 /100WBC 02/01/22 11:52 Sodium 135 mmol/L (136-145) L 02/01/22 11:52 Potassium 4.3 mmol/L (3.5-5.1) 02/01/22 11:52 Chloride 96 mmol/L (98-107) L 02/01/22 11:52 Carbon Dioxide 23 mmol/L (22-29) 02/01/22 11:52 Anion Gap 20.3 (5-19) H 02/01/22 11:52 BUN 10 mg/dL (8-23) 02/01/22 11:52 Creatinine 0.9 mg/dL (0.7-1.2) 02/01/22 11:52 GFR Calculation Not Reportable 02/01/22 11:52 Glucose 109 mg/dL (65-115) 02/01/22 11:52 Calculated Osmolality 280 mOsm/kg (285-295) L 02/01/22 11:52 Calcium 9.5 mg/dL (8.5-10.5) 02/01/22 11:52 Total Bilirubin 1.3 mg/dL (0.15-1.2) H 02/01/22 11:52 AST 16 U/L (0-40) 02/01/22 11:52 ALT 12 U/L (0-41) 02/01/22 11:52 Alkaline Phosphatase 128 IU/L (40-130) 02/01/22 11:52 Troponin T Gen 5 ng/L 24 ng/L (0-15) H 02/01/22 14:55 Troponin T Baseline 29 ng/L (0-15) H 02/01/22 11:52 C-Reactive Protein 80.2 mg/L (0.0-4.9) H 02/01/22 11:52 Total Protein 8.3 g/dL (6.6-8.7) 02/01/22 11:52 Albumin 4.7 g/dL (3.5-5.2) 02/01/22 11:52 Globulin 3.6 g/dL (1.3-4.6) 02/01/22 11:52 Lipase 21 U/L (13-60) 02/01/22 11:52 Procalcitonin 0.14 ng/mL (0-0.5) 02/01/22 11:52 Influenza Type A Ag Negative (Negative) 02/01/22 12:55 Influenza Type B Ag Negative (Negative) 02/01/22 12:55 Imaging Data Other Imaging: Radiologist's impression: [address] [address] XRay Report Signed Patient: Won Rogers Unit #: [id number] : 1950 Age/Sex: 72 / M ADM Date: 02/01/22 Loc: ER Room/Bed: Attending Dr: Ordering Provider/Ordering MD: Angel Cristobal MD Date of Service: 02/01/22 Procedure(s): XR chest 2V* [id number] Accession Number(s): [id number] Report Number: [id number] PROCEDURE INFORMATION: Exam: XR Chest Exam date and time: 02/01/2022 12:18 PM Age: 72 years old Clinical indication: Dyspnea and shortness of breath; Patient HX: SOB for years but getting worse. PT states he has a HX of copd TECHNIQUE: Imaging protocol: Radiologic exam of the chest. Views: Frontal and lateral upright, 2 views. COMPARISON: CR XR chest 1V portable [id number] 09/17/2020 1:28 AM FINDINGS: Lungs: Mild bibasilar subsegmental atelectasis. The lungs are otherwise peripherally clear bilaterally. The pulmonary vasculature is normal. Pleural spaces:? No pleural effusion. No pneumothorax. Heart/Mediastinum: The heart is normal in size and contour. Mediastinum: Stable. Vasculature: Moderate aortic arch atherosclerotic calcification without ectasia. Bones/joints: Diffuse osteopenia. Degenerative disk disease is present at mid-thoracic spine disk levels. XR/XR chest 2V* [id number] IMPRESSION: Mild bibasilar subsegmental atelectasis. ? Dictated By: Rajat Vasquez MD Signed By: Rajat Vasquez MD Signed Date/Time: 02/01/22 1327 DD/ 1218 Discharge Plan Discharge Patient Disposition: Home Clinical Impression: Cough, Fever, Body aches, Fatigue Condition: Stable Prescriptions: New amoxicillin-pot clavulanate 875-125 mg tablet 1 tab PO BID 10 Days Qty: 20 0RF doxycycline hyclate 100 mg tablet 100 mg PO BID 10 Days Qty: 20 0RF No Action ipratropium-albuterol 0.5 mg-3 mg(2.5 mg base)/3 mL solution for nebulization 3 ml inhalation Q6H Qty: 180 5RF lisinopril 20 mg tablet See Rx Instructions PO BID Qty: 60 3RF Rx Instructions: 20mg in the AM, 10mg in the PM PO twice a day; Spiriva Respimat 2.5 mcg/actuation mist 2 puff inhalation DAILY Qty: 4 3RF fluticasone propion-salmeterol [Advair Diskus] 500-50 mcg/dose blister with device 1 inh inhalation BID Qty: 60 3RF amlodipine 2.5 mg tablet 5 mg PO DAILY PRN (Reason: hypertension) Qty: 120 1RF Rx Instructions: may take up to 2 tablets daily for hypertension. monitor BP. latanoprost 0.005 % drops 1 drp ophthalmic (eye) BEDTIME 0RF Vitamin C 1,000 mg Tablet 1,000 mg PO DAILY 0RF Vitamin D3 25 mcg (1,000 unit) Capsule See Rx Instructions .ROUTE .COMPLEX 0RF Rx Instructions: 2,000 units po qam and 1,000 units qpm potassium gluconate 595 mg (99 mg) Tablet 595 mg PO BID@,18 0RF calcium 1 tab PO PRN 0RF Discharge Orders: Discharge ED (Routine); Ordered 02/01/22 Ordered By: Angel Cristobal Referrals: Tyrese Scherer MD [Primary Care Provider] - Discharge Diet: Advance as tolerated Discharge Activity: Increase activity as tolerated Patient Instructions: Fever in Adults (ED), Acute Cough (ED) Activity Restrictions/Additional Instructions: Come back to the emergency room if your symptoms worsen, have any shortness of breath, fever/chills, dehydration, inability tolerate food or drinks, any difficulty breathing, or any new or concerning complaints. Please take your antibiotics as instructed. Watch out for signs of skin changes/redness, mouth redeness or swelling, nausea/vomiting, diarrhea, blood in the urine or any new or concering complaints. Coding Level of Care Code ED Materials Tech for Susie Fwd Exam Comprehensive
--- NOTE | 2022-02-01 12:10 | ECG_ITS ---
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 Measurements Intervals [place] Rate: 82 P: 10 FL: 184 QRS: -60 QRSD: 90 T: 61 QT: 378 QTc: 442 Interpretive Statements SINUS RHYTHM PATTERN CONSISTENT WITH PULMONARY DISEASE LEFT ANTERIOR FASCICULAR BLOCK [QRS AXIS <= -45, QR IN I, RS IN II] Compared to ECG 02/01/2022 14:50:19 Myocardial infarct finding no longer present Electronically Signed On 02-01-2022 18:20:39 CDT by Sb Tian M.D. [id number]
--- NOTE | 2022-02-01 12:14 | XRR_ITS ---
PROCEDURE INFORMATION: Exam: XR Chest Exam date and time: 02/01/2022 12:18 PM Age: 72 years old Clinical indication: Dyspnea and shortness of breath; Patient HX: SOB for years but getting worse. PT states he has a HX of copd TECHNIQUE: Imaging protocol: Radiologic exam of the chest. Views: Frontal and lateral upright, 2 views. COMPARISON: CR XR chest 1V portable [id number] 09/17/2020 1:28 AM FINDINGS: Lungs: Mild bibasilar subsegmental atelectasis. The lungs are otherwise peripherally clear bilaterally. The pulmonary vasculature is normal. Pleural spaces: No pleural effusion. No pneumothorax. Heart/Mediastinum: The heart is normal in size and contour. Mediastinum: Stable. Vasculature: Moderate aortic arch atherosclerotic calcification without ectasia. Bones/joints: Diffuse osteopenia. Degenerative disk disease is present at mid-thoracic spine disk levels. XR/XR chest 2V* [id number] IMPRESSION: Mild bibasilar subsegmental atelectasis.
[2022-02-01 12:25] LABS: Basophils # 0.1 10^3/uL (0.0-0.1); Basophils % 0.3 %; Eosinophils % 0.1 %; Hematocrit 49.2 % (42.0-52.0); Hemoglobin 16.1 g/dL (11.7-16.6); Lymphocytes % 4.6 %; Mean Corpuscular HGB Conc 32.7 g/dL (30.0-36.0); Mean Corpuscular Hemoglobin 31.1 pg (28.0-34.0); Monocytes # 1.4 10^3/uL (0.2-0.9); Monocytes % 6.7 %; Neutrophils # 18.69 10^3/uL (1.8-7.7); Neutrophils % 87.6 %; Nucleated Red Blood Cells % 0 %; Platelet Count 273 10^3/cmm (130-400); Red Blood Count 5.18 10^6/uL (4.1-5.3); Red Cell Distribution Width 12.8 % (12.1-15.1); White Blood Count 21.3 10^3/uL (4.0-10.0)
[2022-02-01 12:42] LABS: Troponin(5th) Baseline 29 ng/L (0-15)
[2022-02-01 12:45] LABS: Alanine Aminotransferase 12 U/L (0-41); Albumin Level 4.7 g/dL (3.5-5.2); Alkaline Phosphatase 128 IU/L (40-130); Anion Gap 20.3 (5-19); Aspartate Amino Transferase 16 U/L (0-40); Blood Urea Nitrogen 10 mg/dL (8-23); C Reactive Protein 80.2 mg/L (0.0-4.9); Calcium 9.5 mg/dL (8.5-10.5); Carbon Dioxide 23 mmol/L (22-29); Chloride 96 mmol/L (98-107); Globulin 3.6 g/dL (1.3-4.6); Glucose 109 mg/dL (65-115); Lipase 21 U/L (13-60); Osmolality Calculated 280 mOsm/kg (285-295); Potassium 4.3 mmol/L (3.5-5.1); Sodium 135 mmol/L (136-145); Total Bilirubin 1.3 mg/dL (0.15-1.2); Total Protein 8.3 g/dL (6.6-8.7)
[2022-02-01 12:50] LABS: Procalcitonin 0.14 ng/mL (0-0.5)
[2022-02-01] MEDS: acetaminophen 500 mg Tablet 1000 MG PO (13:04)
[2022-02-01] MEDS: sodium chloride 0.9% 1,000 ML 999 ML IV (13:05)
--- NOTE | 2022-02-01 14:10 | ECG_ITS ---
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 Measurements Intervals [place] Rate: 87 P: 56 [place]: 176 QRS: -69 QRSD: 91 T: 76 QT: 364 QTc: 439 Interpretive Statements SINUS RHYTHM LEFT ANTERIOR FASCICULAR BLOCK [QRS AXIS <= -45, QR IN I, RS IN II] POSSIBLE ANTERIOR MYOCARDIAL INFARCTION , OF INDETERMINATE AGE [30 ms Q WAVE IN V3/V4, OR R < 0.2 mV IN V4] Compared to ECG 09/17/2020 01:53:34 Left anterior fascicular block now present Myocardial infarct finding now present Sinus tachycardia no longer present Left-axis deviation no longer present Electronically Signed On 02-01-2022 18:23:13 CDT by Sb Tian M.D. [id number]
[2022-02-01 14:13] LABS: Influenza A by IFA Negative (Negative); Influenza B by IFA Negative (Negative)
[2022-02-01 14:31] VITALS: BP 146/66; PULSE 93; O2SAT 92
[2022-02-01] MEDS: amoxicillin-clav 875-125 mg Tablet 1 TAB PO (14:33)
[2022-02-01] MEDS: doxycycline 100 mg Tablet PO (14:33)
[2022-02-01 15:07] VITALS: BP 146/66; PULSE 84; TEMP 37.2; O2SAT 94
[2022-02-01 15:18] LABS: Troponin T (5th) Once 24 ng/L (0-15)
== END 2022-02-01 15:50 | disposition home or self-care (01) ==
PROVIDERS: Emergency Provider Emergency Medicine; PCP Family Medicine
DX: R05.9 Cough, unspecified (principal); R50.9 Fever, unspecified; R53.83 Other fatigue; R52 Pain, unspecified; I25.10 Atherosclerotic heart disease of native coronary artery without angina pectoris; J44.9 Chronic obstructive pulmonary disease, unspecified; I10 Essential (primary) hypertension; E78.2 Mixed hyperlipidemia; Z86.73 Personal history of transient ischemic attack (TIA), and cerebral infarction without residual deficits; Z87.891 Personal history of nicotine dependence
CPT/HCPCS: 36415; 71046; 80053; 83690; 84145; 84484; 85025; 86140; 87804; 93005; 96360; 99285; J7030

== ENCOUNTER → 2022-02-22 12:46 | Outpatient (BNVA) | payer MEDICARE, SELFPAY | PROVIDERS: PCP Family Medicine; Visit Provider Internal Medicine | DX: I10 Essential (primary) hypertension (principal); I25.10 Atherosclerotic heart disease of native coronary artery without angina pectoris; E78.2 Mixed hyperlipidemia; I65.29 Occlusion and stenosis of unspecified carotid artery; J43.2 Centrilobular emphysema; R07.9 Chest pain, unspecified; Z87.891 Personal history of nicotine dependence | CPT/HCPCS: 99213 ==

== ENCOUNTER → 2022-07-09 11:18 | Outpatient (BNVA) | payer MEDICARE, SELFPAY | PROVIDERS: PCP Family Medicine; Visit Provider Internal Medicine Pulmonary Disease | DX: R06.00 Dyspnea, unspecified (principal); J43.2 Centrilobular emphysema; J30.2 Other seasonal allergic rhinitis; Z87.891 Personal history of nicotine dependence; M25.541 Pain in joints of right hand; M25.542 Pain in joints of left hand; R76.8 Other specified abnormal immunological findings in serum; M62.81 Muscle weakness (generalized) | CPT/HCPCS: 99214 ==

== ENCOUNTER → 2022-09-06 15:17 | Outpatient (BNVA) | payer MEDICARE, SELFPAY | PROVIDERS: PCP Family Medicine; Visit Provider Internal Medicine | DX: I25.10 Atherosclerotic heart disease of native coronary artery without angina pectoris (principal); R07.9 Chest pain, unspecified; I73.9 Peripheral vascular disease, unspecified; I10 Essential (primary) hypertension; I65.29 Occlusion and stenosis of unspecified carotid artery; E78.2 Mixed hyperlipidemia; J43.2 Centrilobular emphysema; Z87.891 Personal history of nicotine dependence | CPT/HCPCS: 99214 ==

== ENCOUNTER 2022-10-13 12:10 | Outpatient (CLI) | payer MEDICARE, SELFPAY ==
--- NOTE | 2022-10-13 12:00 | USCV_ITS ---
Won Rogers Age: 72 Gender: M : 1950 Exam Date: 10/13/2022 13:31 Ordering Phys: Sb Tian M.D ([email or web address]) Technologist: MATHEUS Exam Location: [facility] [place] Indication: CHEST PAIN, SHORTNESS OF BREATH BP: 164 / 68 HR: 93 Rhythm: Sinus Technical Quality: Adequate MEASUREMENTS (Male / Female) Normal Values 2D ECHO LVOT Diameter 2.0 cm LV Ejection Fraction MOD 2C 67.9 % LV Ejection Fraction 2C AL 67.6 % LA Diameter 2.9 cm LA Width 2.9 cm LA Height 3.4 cm RA Width 3.4 cm RA Height 3.8 cm Aorta at Sinotubular Diameter 1.7 cm IVC Diameter 1.5 cm M-MODE Aortic Annulus Diameter 2.8 cm LA Ao Ratio MM 1.0 MV E Point Septal Separation 0.5 cm DOPPLER AV Peak Velocity 126.0 cm/s LVOT Peak Velocity 92.0 cm/s AV Area Cont Eq vti 2.8 cm squared AV Area Cont Eq pk 2.3 cm squared MV Peak Velocity 110.0 cm/s MV Area PHT 4.4 cm squared Mitral E to A Ratio 0.6 MV E' Velocity 38.5 cm/s Mitral E to MV E' Ratio 6.8 Mitral E to LV E' Lateral Ratio 6.6 Mitral E to LV E' Septal Ratio 7.2 TR Peak Velocity 167.1 cm/s TR Peak Gradient 11.2 mmHg TR Mean Velocity 142.4 cm/s TR Mean Gradient 8.2 mmHg TR Velocity Time Integral 48.6 cm TV Peak E Velocity 34.0 cm/s Right Atrial Pressure 3.0 mmHg Pulmonary Artery Systolic Pressu 14.2 mmHg PV Peak Velocity 126.0 cm/s RV Acceleration Time 0.1 s RV Ejection Time 0.3 s RV AcT/ET 0.4 FINDINGS Left Ventricle Technically limited quality echocardiogram because of poor ultrasonic windows. Left ventricle is normal and size. LV systolic function is normal with EF 55 to 60%. No regional wall motion abnormalities are seen. Grade 1 diastolic dysfunction Right Ventricle Normal in size and function Right Atrium Normal in size. Echogenic structure noted likely eustachian valve. Left Atrium Normal in size Mitral Valve Structurally normal mitral valve. Mild mitral regurgitation. Aortic Valve Structurally normal aortic valve. No significant stenosis or regurgitation. Tricuspid Valve Mild tricuspid regurgitation. Pulmonic Valve Not well visualized Pericardium Normal Aorta Normal in size IVC Appears to be normal CONCLUSIONS Technically limited quality echocardiogram because of poor ultrasonic windows. LV systolic function is normal with EF 55 to 60% Grade 1 diastolic dysfunction Mild mitral regurgitation Mild tricuspid regurgitation Compared to prior echocardiogram from 03/04/2020, no significant changes are noted. Sb Tian MD (Electronically Signed) Final Date: 23 October 2022 10:14 S
--- NOTE | 2022-10-13 13:30 | USR_ITS ---
PROCEDURE INFORMATION: Exam: US Duplex Lower Extremity Arteries Exam date and time: 10/13/2022 12:30 PM Age: 72 years old Clinical indication: Pain; Leg, lower; Bilateral; Prior surgery; Surgery date: 6+ months; Surgery type: 2 RT fv stents. 1 lt fv stent; Additional info: Pad, bilateral leg pain TECHNIQUE: Imaging protocol: Real-time ultrasound scan of the arteries of the bilateral lower extremities with 2-D yepez scale, color Doppler flow and spectral waveform analysis. Images documented and saved. COMPARISON: No relevant prior studies available. FINDINGS: Right external iliac artery: There is low velocity flow and abnormal parvus tardus waveforms in the right iliac arteries. Velocity in the distal right external iliac artery is 39 cm/s. Right common femoral artery: Peak velocity 43 cm/s. Abnormal parvus tardus waveform. Right superficial femoral artery: Peak velocity 88 cm/s. Abnormal parvus tardus waveforms with forward flow through diastole. Right popliteal artery: Peak velocity 35 cm/s. Abnormal parvus tardus waveforms with forward flow through diastole. Right calf/foot arteries: The right posterior tibial and dorsalis pedis arteries are patent. The anterior tibial and peroneal arteries were not interrogated. Left external iliac artery: Left iliac arteries demonstrate normal waveforms. Velocity in the distal left external iliac artery is 145 cm/s. Left common femoral artery: Normal waveform. Peak velocity 159 cm/s. Left superficial femoral artery: Normal waveforms. Peak velocity is in the distal SFA measuring 155 cm/s. Left popliteal artery: Mildly abnormal monophasic waveforms. Peak velocity 68 cm/s. Left calf/foot arteries: Left posterior tibial and dorsalis pedis arteries are patent. The anterior tibial and peroneal arteries were not interrogated. US/[place] [id number] IMPRESSION: 1. 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 Recommend CTA of the abdomen and pelvis to define the site and severity of stenosis. 2. No hemodynamically significant stenosis on the left.
== END 2022-10-13 12:11 | disposition home or self-care (01) ==
LOC: RAD 12:11
PROVIDERS: PCP Family Medicine; Visit Provider Internal Medicine
DX: R06.02 Shortness of breath (principal); R07.9 Chest pain, unspecified; I73.9 Peripheral vascular disease, unspecified; M79.604 Pain in right leg; M79.605 Pain in left leg; I70.8 Atherosclerosis of other arteries; I08.1 Rheumatic disorders of both mitral and tricuspid valves
CPT/HCPCS: 93306; 93925

== ENCOUNTER 2022-10-21 05:22 | Emergency (ER) | payer MEDICARE, SELFPAY ==
[2022-10-21 05:31] VITALS: BP 201/108; PULSE 109; RESP 20; TEMP 36.4; O2SAT 93; BMI 28.8
--- NOTE | 2022-10-21 05:34 | W.ED.MALEGU ---
Documented by User: Huong Yang MD 10/21/22 05:37 HPI - Male Genitourinary General: Chief complaint: Urogenital-Male Stated complaint: Can Pee Time Seen by Provider: 10/21/22 05:23 Source: patient Mode of arrival: ambulatory Limitations: no limitations History of Present Illness: 72-year-old male states he has a history of difficulty urinating in the past he states that tonight he has been having no urine output since midnight. He states he been having pain at his penis and states he has not been able to urinate at all he is also had some lower abdominal pain feels like his bladder is full he denies any fever denies any vomiting denies any worsening improving factors. Associated symptoms: Deny nausea or vomiting Review of Systems Const: Denies: fever(s), chills, body aches or change in appetite Eyes: Denies: blurry vision or eye discomfort ENMT: Denies: throat pain or dental pain Card: Denies: chest pain Resp: Denies: dyspnea GI: Denies: abdominal pain, nausea, vomiting or diarrhea : Reports: difficulty urinating Musc: Denies: neck pain or back pain Skin/Breast: Denies: rash Neuro: Denies: headache(s) Psych: Denies: depression Jose/Lymph: Denies: easy bruising All/Imm: Denies: urticaria PFSH ED PFSH: Medical History BPH (benign prostatic hyperplasia) CAD (coronary atherosclerotic disease) Carotid stenosis Cataract (lens) fragments in eye following cataract surgery Chronic constipation COPD (chronic obstructive pulmonary disease) Elevated PSA HTN (hypertension) Hyperlipemia, mixed PAD (peripheral artery disease) S/P angiogram of extremity TIA (transient ischemic attack) Tobacco abuse Surgical History S/P inguinal hernia repair S/P routine circumcision Family History Mother Cancer PANCREATIC CAD (coronary artery disease) Father Lung disease Social History Smoking and tobacco status: former smoker Quit status (tobacco): has quit using tobacco Year quit tobacco: 2016 [id number] Second hand smoke exposure: Yes Smoking risk assessment/counseling performed?: Yes Alcohol intake: former Year of sobriety/quit date alcohol: 1986 Lives independently: Yes Housing: House Marital status: Number of children: 0 Highest education level completed: Some College, No Degree service: Yes branch: [employer] Current occupational status: retired Pets and animals: No Current gender identity: Male Dominga/Anglican: Other Physical Exam Const: COMMON NORMALS: no acute distress, patient oriented x3 and healthy appearing HENMT: COMMON NORMALS: normocephalic and atraumatic HEAD & SCALP: normocephalic and atraumatic Eye: COMMON NORMALS: Equal, round and reactive pupils present and EOMs intact bilaterally PUPIL: Yes Equal, round and reactive pupils present Neck/C-Spine: COMMON NORMALS: full ROM and supple Chest: COMMONS NORMALS: normal inspection of the chest and normal palpation of entire chest wall Resp: COMMON NORMALS: normal respiratory effort, No retractions, No use of accessory muscles and clear to auscultation bilaterally AUSCULTATION: clear to auscultation bilaterally Cardio: COMMON NORMALS: regular rate, regular rhythm and No murmurs present (Cardio) RATE: regular rate RHYTHM: regular rhythm GI: COMMON NORMALS: Normal to inspection, nondistended, normoactive bowel sounds present, Soft to palpation, non-tender and no masses PALPATION: Yes Soft to palpation Extremity: COMMON NORMALS: normal to inspection and full ROM Neuro: COMMON NORMALS: patient oriented x3, moves all extremities and no focal motor deficits Psych: COMMON NORMALS: mental status grossly normal, Normal thought process present and cooperative THOUGHT PROCESS: Normal thought process present Skin: COMMON NORMALS: no rashes or lesions noted and no wounds GENERAL SKIN EXAM: no rashes or lesions noted Course Vital Signs: Vital signs: Vital Signs Temperature 97.5 F L 10/21/22 05:31 Pulse Rate 101 H 10/21/22 07:54 Respiratory Rate 18 10/21/22 07:54 Blood Pressure 179/91 10/21/22 07:54 Pulse Oximetry 96 10/21/22 07:54 Oxygen Delivery Me thod 10/21/22 06:06 MDM - Male Lab Data Laboratory Results Urine Color Yellow (Yellow) 10/21/22 05:56 Urine Appearance Clear (CLEAR) 10/21/22 05:56 Urine pH 6.5 (5-7) 10/21/22 05:56 Ur Specific [place] 1.010 (1.005-1.030) 10/21/22 05:56 Urine Protein Neg (Negative) 10/21/22 05:56 Urine Glucose (UA) Norm (Normal) 10/21/22 05:56 Urine Ketones Negative (Negative) 10/21/22 05:56 Urine Blood 3+ (Negative) H 10/21/22 05:56 Urine Nitrate Negative (Negative) 10/21/22 05:56 Urine Bilirubin Neg (Negative) 10/21/22 05:56 Urine Urobilinogen Neg mg/dL (Negative) 10/21/22 05:56 Ur Leukocyte Esterase Negative (Negative) 10/21/22 05:56 Urine RBC 10-15 /hpf (0-2) H 10/21/22 05:56 Urine WBC 0-4 /hpf (0-5) H 10/21/22 05:56 Ur Squamous Epith Cells 0-4 /hpf (0-5) H 10/21/22 05:56 Amorphous Sediment Not Reportable 10/21/22 05:56 Urine Bacteria None /hpf (NONE) 10/21/22 05:56 Discharge Plan Discharge Patient Disposition: Home Clinical Impression: Acute urinary retention Condition: Stable Prescriptions: New tamsulosin 0.4 mg capsule 0.4 mg PO DAILY Qty: 30 0RF No Action ipratropium-albuterol 0.5 mg-3 mg(2.5 mg base)/3 mL solution for nebulization 3 ml inhalation Q6H Qty: 180 5RF force factor prostate PO amlodipine 2.5 mg tablet 2.5 mg PO DAILY Qty: 90 1RF fluticasone propion-salmeterol [Advair Diskus] 500-50 mcg/dose blister with device 1 inh inhalation BID Qty: 60 3RF lisinopril 20 mg tablet 20 mg PO BID Qty: 180 3RF latanoprost 0.005 % drops 1 drp ophthalmic (eye) BEDTIME Vitamin C 1,000 mg Tablet 1,000 mg PO DAILY Vitamin D3 25 mcg (1,000 unit) Capsule See Rx Instructions .ROUTE .COMPLEX Rx Instructions: 2,000 units po qam and 1,000 units qpm potassium gluconate 595 mg (99 mg) Tablet 595 mg PO BID@09,18 calcium 1 tab PO PRN Discharge Orders: Discharge ED (Routine); Ordered 10/21/22 Ordered By: Vasquez Griggs Referrals: Tyrese Scherer MD [Primary Care Provider] - Discharge Diet: Advance as tolerated Discharge Activity: Resume usual activity Patient Instructions: Urinary Retention in Men (ED) Activity Restrictions/Additional Instructions: You were seen today for urinary retention a Patel catheter was placed. We will discharge you home on tamsulosin once daily. Patel catheter will remain in place with a leg bag. Case management will make arrangements for you to have a follow-up with urology. Sign Out Sign Out Data: Patient Sign Out occurred on 10/21/22 at 06:04. Patient's care was discussed, and care was transferred from to Vasquez Griggs DO. Coding Level of Care Code ED Corporate Technical Recruiter for Chg Fwd Documented by User: Vasquez Griggs DO 10/21/22 16:51 HPI - Male Genitourinary General: Chief complaint: Urogenital-Male Stated complaint: Can Pee Time Seen by Provider: 10/21/22 05:23 [facility] ED PFSH: Medical History BPH (benign prostatic hyperplasia) CAD (coronary atherosclerotic disease) Carotid stenosis Cataract (lens) fragments in eye following cataract surgery Chronic constipation COPD (chronic obstructive pulmonary disease) Elevated PSA HTN (hypertension) Hyperlipemia, mixed PAD (peripheral artery disease) S/P angiogram of extremity TIA (transient ischemic attack) Tobacco abuse Surgical History S/P inguinal hernia repair S/P routine circumcision Family History Mother Cancer PANCREATIC CAD (coronary artery disease) Father Lung disease Social History Smoking and tobacco status: former smoker Quit status (tobacco): has quit using tobacco Year quit tobacco: 2017 [id number] Second hand smoke exposure: Yes Smoking risk assessment/counseling performed?: Yes Alcohol intake: former Year of sobriety/quit date alcohol: 1987 Lives independently: Yes Housing: House Marital status: Number of children: 0 Highest education level completed: Some College, No Degree service: Yes branch: [employer] Current occupational status: retired Pets and animals: No Current gender identity: Male Dominga/Anglican: Other Course Vital Signs: Vital signs: Vital Signs Temperature 97.5 F L 10/21/22 05:31 Pulse Rate 101 H 10/21/22 07:54 Respiratory Rate 18 10/21/22 07:54 Blood Pressure 179/91 10/21/22 07:54 Pulse Oximetry 96 10/21/22 07:54 Oxygen Delivery Me thod 10/21/22 06:06 MDM - Male Medical Decision Making Acute urinary retnetion. D/c w patel leg back, add tamsulosulin. Refer to urology. Medical Records I reviewed the patient's medical records. Lab Data I reviewed the patient's lab results. Laboratory Results Urine Color Yellow (Yellow) 10/21/22 05:56 Urine Appearance Clear (CLEAR) 10/21/22 05:56 Urine pH 6.5 (5-7) 10/21/22 05:56 Ur Specific [place] 1.010 (1.005-1.030) 10/21/22 05:56 Urine Protein Neg (Negative) 10/21/22 05:56 Urine Glucose (UA) Norm (Normal) 10/21/22 05:56 Urine Ketones Negative (Negative) 10/21/22 05:56 Urine Blood 3+ (Negative) H 10/21/22 05:56 Urine Nitrate Negative (Negative) 10/21/22 05:56 Urine Bilirubin Neg (Negative) 10/21/22 05:56 Urine Urobilinogen Neg mg/dL (Negative) 10/21/22 05:56 Ur Leukocyte Esterase Negative (Negative) 10/21/22 05:56 Urine RBC 10-15 /hpf (0-2) H 10/21/22 05:56 Urine WBC 0-4 /hpf (0-5) H 10/21/22 05:56 Ur Squamous Epith Cells 0-4 /hpf (0-5) H 10/21/22 05:56 Amorphous Sediment Not Reportable 10/21/22 05:56 Urine Bacteria None /hpf (NONE) 10/21/22 05:56 Discharge Plan Discharge Patient Disposition: Home Clinical Impression: Acute urinary retention Condition: Stable Prescriptions: New tamsulosin 0.4 mg capsule 0.4 mg PO DAILY Qty: 30 0RF No Action ipratropium-albuterol 0.5 mg-3 mg(2.5 mg base)/3 mL solution for nebulization 3 ml inhalation Q6H Qty: 180 5RF force factor prostate PO amlodipine 2.5 mg tablet 2.5 mg PO DAILY Qty: 90 1RF fluticasone propion-salmeterol [Advair Diskus] 500-50 mcg/dose blister with device 1 inh inhalation BID Qty: 60 3RF lisinopril 20 mg tablet 20 mg PO BID Qty: 180 3RF latanoprost 0.005 % drops 1 drp ophthalmic (eye) BEDTIME Vitamin C 1,000 mg Tablet 1,000 mg PO DAILY Vitamin D3 25 mcg (1,000 unit) Capsule See Rx Instructions .ROUTE .COMPLEX Rx Instructions: 2,000 units po qam and 1,000 units qpm potassium gluconate 595 mg (99 mg) Tablet 595 mg PO BID@09,18 calcium 1 tab PO PRN Discharge Orders: Discharge ED (Routine); Ordered 10/21/22 Ordered By: Vasquez Griggs Referrals: Tyrese Scherer MD [Primary Care Provider] - Discharge Diet: Advance as tolerated Discharge Activity: Resume usual activity Patient Instructions: Urinary Retention in Men (ED) Activity Restrictions/Additional Instructions: You were seen today for urinary retention a Patel catheter was placed. We will discharge you home on tamsulosin once daily. Patel catheter will remain in place with a leg bag. Case management will make arrangements for you to have a follow-up with urology. Sign Out Sign Out Data: Patient Sign Out occurred on 10/21/22 at 06:04. Patient's care was discussed, and care was transferred from to Vasquez Griggs DO. Coding Level of Care Code ED Corporate Technical Recruiter for Susie Falcon
[2022-10-21 06:06] VITALS: BP 140/77; PULSE 90; RESP 18; O2SAT 96
[2022-10-21 06:30] VITALS: BP 155/77; PULSE 88; RESP 16; O2SAT 96
[2022-10-21 06:38] LABS: Add Urine Microscopic? YES; Bilirubin Urine Neg (Negative); Blood Urine 3+ (Negative); Glucose Urine UA Norm (Normal); Ketones Urine Negative (Negative); Leukocyte Esterase Urine Negative (Negative); Nitrate Urine Negative (Negative); Protein Urine Neg (Negative); Urine Appearance Clear (CLEAR); Urine Color Yellow (Yellow); Urobilinogen Urine Neg (Negative); pH Urine 6.5 (5-7)
[2022-10-21 06:50] LABS: Squamous Epithelial Cell Urine 0-4 /hpf (0-5); WBC Urine 0-4 /hpf (0-5)
[2022-10-21 06:52] LABS: Add Urine Culture? Yes
[2022-10-21 07:54] VITALS: BP 179/91; PULSE 101; RESP 18; O2SAT 96
== END 2022-10-21 07:56 | disposition home or self-care (01) ==
PROVIDERS: Emergency Medicine; Emergency Provider Family Medicine; PCP Family Medicine
DX: R33.9 Retention of urine, unspecified (principal); Z87.891 Personal history of nicotine dependence; I25.10 Atherosclerotic heart disease of native coronary artery without angina pectoris; J44.9 Chronic obstructive pulmonary disease, unspecified; I10 Essential (primary) hypertension; E78.2 Mixed hyperlipidemia; Z86.73 Personal history of transient ischemic attack (TIA), and cerebral infarction without residual deficits
CPT/HCPCS: 51702; 80053; 81001; 85025; 87086; 99283

== ENCOUNTER 2022-10-21 19:12 | Emergency (ER) | payer MEDICARE, SELFPAY ==
[2022-10-21 19:45] VITALS: BP 160/78; PULSE 104; RESP 20; TEMP 36.6; O2SAT 92; BMI 28.8
[2022-10-21 20:44] LABS: Basophils % 0.2 %; Eosinophils # 0.1 10^3/uL (0.0-0.8); Eosinophils % 0.7 %; Hematocrit 47.9 % (42.0-52.0); Hemoglobin 15.6 g/dL (11.7-16.6); Lymphocytes # 1.3 10^3/uL (0.8-4.8); Lymphocytes % 9.6 %; Mean Corpuscular HGB Conc 32.6 g/dL (30.0-36.0); Mean Corpuscular Volume 95.2 fl (80-94); Mean Platelet Volume 9.4 fL (7.4-10.4); Monocytes % 7.3 %; Neutrophils # 11.13 10^3/uL (1.8-7.7); Neutrophils % 81.8 %; Nucleated Red Blood Cells % 0 %; Platelet Count 268 10^3/cmm (130-400); Red Blood Count 5.03 10^6/uL (4.1-5.3); Red Cell Distribution Width 12.9 % (12.1-15.1); White Blood Count 13.6 10^3/uL (4.0-10.0)
--- NOTE | 2022-10-21 20:55 | ED_ITS ---
HPI - Male Genitourinary General: Chief complaint: Urogenital-Male Stated complaint: Cath is Bleeding\Pain Time Seen by Provider: 10/21/22 20:23 Source: patient Mode of arrival: ambulatory Limitations: no limitations History of Present Illness: 72-year-old male who is seen this morning for urinary retention had a Saeed placed he states he has had some blood out of the Saeed since this afternoon some slight pain patient denies any fevers the Saeed is functioning well. Denies any clots. He rates his pain a 2 out of 10 currently Associated symptoms: Reports hematuria; Deny nausea or vomiting Review of Systems Const: Denies: fever(s), chills, body aches or change in appetite Eyes: Denies: blurry vision or eye discomfort ENMT: Denies: throat pain or dental pain Card: Denies: chest pain Resp: Denies: dyspnea GI: Denies: abdominal pain, nausea, vomiting or diarrhea : Reports: hematuria Musc: Denies: neck pain or back pain Skin/Breast: Denies: rash Neuro: Denies: headache(s) Psych: Denies: depression Jose/Lymph: Denies: easy bruising All/Imm: Denies: urticaria PFSH ED PFSH: Medical History BPH (benign prostatic hyperplasia) CAD (coronary atherosclerotic disease) Carotid stenosis Cataract (lens) fragments in eye following cataract surgery Chronic constipation COPD (chronic obstructive pulmonary disease) Elevated PSA HTN (hypertension) Hyperlipemia, mixed PAD (peripheral artery disease) S/P angiogram of extremity TIA (transient ischemic attack) Tobacco abuse Surgical History S/P inguinal hernia repair S/P routine circumcision Family History Mother Cancer PANCREATIC CAD (coronary artery disease) Father Lung disease Social History Smoking and tobacco status: former smoker Quit status (tobacco): has quit using tobacco Year quit tobacco: 2016 [id number] Second hand smoke exposure: Yes Smoking risk assessment/counseling performed?: Yes Alcohol intake: former Year of sobriety/quit date alcohol: 1986 Lives independently: Yes Housing: House Marital status: Number of children: 0 Highest education level completed: Some College, No Degree service: Yes branch: [employer] Current occupational status: retired Pets and animals: No Current gender identity: Male Dominga/Baptist: Other Physical Exam Const: COMMON NORMALS: no acute distress and patient oriented x3 HENMT: COMMON NORMALS: normocephalic HEAD & SCALP: normocephalic Eye: COMMON NORMALS: conjunctivae normal CONJUNCTIVA: Yes conjunctivae normal Neck/C-Spine: COMMON NORMALS: supple Chest: COMMONS NORMALS: normal inspection of the chest Resp: COMMON NORMALS: normal respiratory effort Cardio: COMMON NORMALS: regular rate RATE: regular rate GI: COMMON NORMALS: Normal to inspection, nondistended, normoactive bowel sounds present, Soft to palpation and non-tender PALPATION: Yes Soft to palpation : OTHER: Saeed in place no blood clots in the bag some blood-tinged urine Extremity: COMMON NORMALS: normal to inspection Neuro: COMMON NORMALS: patient oriented x3 Psych: COMMON NORMALS: mental status grossly normal Skin: COMMON NORMALS: no rashes or lesions noted GENERAL SKIN EXAM: no rashes or lesions noted Course Vital Signs: Vital signs: Vital Signs Temperature 97.8 F 10/21/22 19:45 Pulse Rate 97 10/21/22 21:51 Respiratory Rate 16 10/21/22 21:51 Blood Pressure 146/79 10/21/22 21:51 Pulse Oximetry 97 10/21/22 21:51 Oxygen Delivery Me thod 10/21/22 21:05 MDM - Male Medical Decision Making Patient presents here with some hematuria did have a catheter placed this morning blood work here is normal did flush it is clear now we will place him on some Bactrim along with pain medicine he is to follow-up with PCP and return if worsening. Lab Data 10/21/22 20:30 10/21/22 20:30 Laboratory Results WBC 13.6 10^3/uL (4.0-10.0) H 10/21/22 20:30 RBC 5.03 10^6/uL (4.1-5.3) 10/21/22 20:30 Hgb 15.6 g/dL (11.7-16.6) 10/21/22 20:30 Hct 47.9 % (42.0-52.0) 10/21/22 20: MCV 95.2 fl (80-94) H 10/21/22 20: MCH 31.0 pg (28.0-34.0) 10/21/22 20: MCHC 32.6 g/dL (30.0-36.0) 10/21/22 20: RDW 12.9 % (12.1-15.1) 10/21/22 20: Plt Count 268 10^3/cmm (130-400) 10/21/22 20:30 MPV 9.4 fL (7.4-10.4) 10/21/22 20: Neut % (Auto) 81.8 % 10/21/22 20: Lymph % (Auto) 9.6 % 10/21/22 20: [place] % (Auto) 7.3 % 10/21/22 20: Eos % (Auto) 0.7 % 10/21/22 20: Baso % (Auto) 0.2 % 10/21/22 20:30 Neut # (Auto) 11.13 10^3/uL (1.8-7.7) H 10/21/22 20: Lymph # (Auto) 1.3 10^3/uL (0.8-4.8) 10/21/22 20:30 [place] # (Auto) 1.0 10^3/uL (0.2-0.9) H 10/21/22 20:30 Eos # (Auto) 0.1 10^3/uL (0.0-0.8) 10/21/22 20: Baso # (Auto) 0.0 10^3/uL (0.0-0.1) 10/21/22 20:30 Nucleated RBC % (auto) 0 % 10/21/22: Nucleated RBCs # 0.0 /100WBC 10/21/22 20:30 Sodium 139 mmol/L (136-145) 10/21/22 20:30 Potassium 4.2 mmol/L (3.5-5.1) 10/21/22 20:30 Chloride 101 mmol/L (98-107) 10/21/22 20:30 Carbon Dioxide 26 mmol/L (22-29) 10/21/22 20:30 Anion Gap 16.2 (5-19) 10/21/22 20:30 BUN 15 mg/dL (8-23) 10/21/22 20:30 Creatinine 0.8 mg/dL (0.7-1.2) 10/21/22 20:30 GFR Calculation Not Reportable 10/21/22 20:30 Glucose 151 mg/dL (65-115) H 10/21/22 20:30 Calculated Osmolality 292 mOsm/kg (285-295) 10/21/22 20: Calcium 9.7 mg/dL (8.5-10.5) 10/21/22 20:30 Total Bilirubin 0.9 mg/dL (0.15-1.2) 10/21/22 20: AST 24 U/L (0-40) 10/21/22 20: ALT 10 U/L (0-41) 10/21/22 20:30 Alkaline Phosphatase 116 U/L (40-130) 10/21/22 20: Total Protein 8.1 g/dL (6.6-8.7) 10/21/22 20: Albumin 4.5 g/dL (3.5-5.2) 10/21/22 20: Globulin 3.6 g/dL (1.3-4.6) 10/21/22 20:30 Urine Color Red (Yellow) 10/21/22 21:00 Urine Appearance Clear (CLEAR) 10/21/22 21:00 Urine pH 6 (5-7) 10/21/22 21:00 Ur Specific [place] 1.020 (1.005-1.030) 10/21/22 21:00 Urine Protein 3+ (Negative) H 10/21/22 21:00 Urine Glucose (UA) Norm (Normal) 10/21/22 21:00 Urine Ketones Negative (Negative) 10/21/22 21:00 Urine Blood 3+ (Negative) H 10/21/22 21:00 Urine Nitrate Negative (Negative) 10/21/22 21:00 Urine Bilirubin Neg (Negative) 10/21/22 21:00 Urine Urobilinogen Norm mg/dL (Negative) 10/21/22 21:00 Ur Leukocyte Esterase Negative (Negative) 10/21/22 21:00 Urine RBC >100 /hpf (0-2) H 10/21/22 21:00 Urine WBC >100 /hpf (0-5) H 10/21/22 21:00 Ur Squamous Epith Cells 0-4 /hpf (0-5) H 10/21/22 21:00 Amorphous Sediment Not Reportable 10/21/22 21:00 Urine Bacteria 1+ /hpf (NONE) H 10/21/22 21:00 Discharge Plan Discharge Patient Disposition: Home Clinical Impression: Acute urinary retention, Hematuria Condition: Stable Prescriptions: New hydrocodone-acetaminophen 5-325 mg tablet 1 tab PO Q6H PRN (Reason: pain) Qty: 14 0RF Bactrim DS 800-160 mg tablet 1 tab PO BID 10 Days Qty: 20 0RF No Action ipratropium-albuterol 0.5 mg-3 mg(2.5 mg base)/3 mL solution for nebulization 3 ml inhalation Q6H Qty: 180 5RF force factor prostate PO amlodipine 2.5 mg tablet 2.5 mg PO DAILY Qty: 90 1RF fluticasone propion-salmeterol [Advair Diskus] 500-50 mcg/dose blister with device 1 inh inhalation BID Qty: 60 3RF lisinopril 20 mg tablet 20 mg PO BID Qty: 180 3RF latanoprost 0.005 % drops 1 drp ophthalmic (eye) BEDTIME Vitamin C 1,000 mg Tablet 1,000 mg PO DAILY Vitamin D3 25 mcg (1,000 unit) Capsule See Rx Instructions .ROUTE .COMPLEX Rx Instructions: 2,000 units po qam and 1,000 units qpm potassium gluconate 595 mg (99 mg) Tablet 595 mg PO BID@09,18 calcium 1 tab PO PRN tamsulosin 0.4 mg capsule 0.4 mg PO DAILY Qty: 30 0RF Discharge Orders: Discharge ED (Routine); Ordered 10/21/22 Ordered By: Huong Yang Referrals: Tyrese Scherer MD [Primary Care Provider] - 1-3 days Discharge Diet: Advance as tolerated Discharge Activity: Resume usual activity Patient Instructions: Saeed Catheter Placement and Care (ED), Hematuria (ED) Coding Level of Care Code ED Patient Admitting Representative for Susie Falcon
[2022-10-21 20:59] LABS: Alanine Aminotransferase 10 U/L (0-41); Albumin Level 4.5 g/dL (3.5-5.2); Alkaline Phosphatase 116 U/L (40-130); Anion Gap 16.2 (5-19); Aspartate Amino Transferase 24 U/L (0-40); Blood Urea Nitrogen 15 mg/dL (8-23); Calcium 9.7 mg/dL (8.5-10.5); Carbon Dioxide 26 mmol/L (22-29); Chloride 101 mmol/L (98-107); Globulin 3.6 g/dL (1.3-4.6); Glucose 151 mg/dL (65-115); Osmolality Calculated 292 mOsm/kg (285-295); Potassium 4.2 mmol/L (3.5-5.1); Sodium 139 mmol/L (136-145); Total Bilirubin 0.9 mg/dL (0.15-1.2); Total Protein 8.1 g/dL (6.6-8.7)
[2022-10-21 21:05] VITALS: BP 153/71; PULSE 106; RESP 18; O2SAT 97
[2022-10-21 21:28] LABS: Urine Appearance Clear (CLEAR); Urine Color Red (Yellow)
[2022-10-21 21:29] LABS: Add Urine Microscopic? YES; Bilirubin Urine Neg (Negative); Blood Urine 3+ (Negative); Glucose Urine UA Norm (Normal); Ketones Urine Negative (Negative); Leukocyte Esterase Urine Negative (Negative); Nitrate Urine Negative (Negative); Protein Urine 3+ (Negative); Urobilinogen Urine Norm (Negative); pH Urine 6 (5-7)
[2022-10-21] MEDS: HYDROcodone-acetaminophen 5-325 mg Tablet 1 TAB PO (21:30)
[2022-10-21 21:51] VITALS: BP 146/79; PULSE 97; RESP 16; O2SAT 97
[2022-10-21 22:04] LABS: Bacteria Urine 1+ /hpf; RBC Urine >100 /hpf (0-2); Squamous Epithelial Cell Urine 0-4 /hpf (0-5); WBC Urine >100 /hpf (0-5)
[2022-10-21 22:05] LABS: Add Urine Culture? Yes
== END 2022-10-21 22:05 | disposition home or self-care (01) ==
PROVIDERS: Emergency Provider Emergency Medicine; PCP Family Medicine
DX: R33.9 Retention of urine, unspecified (principal); R31.9 Hematuria, unspecified; I25.10 Atherosclerotic heart disease of native coronary artery without angina pectoris; N40.0 Benign prostatic hyperplasia without lower urinary tract symptoms; J44.0 Chronic obstructive pulmonary disease with (acute) lower respiratory infection; I10 Essential (primary) hypertension; E78.2 Mixed hyperlipidemia; Z86.73 Personal history of transient ischemic attack (TIA), and cerebral infarction without residual deficits; Z87.891 Personal history of nicotine dependence
CPT/HCPCS: 80053; 81001; 85025; 87086; 99283

== ENCOUNTER 2022-11-22 06:04 | Outpatient (CLI) | payer MEDICARE, SELFPAY ==
--- NOTE | 2022-11-22 06:30 | CT_ITS ---
WS: [id number] CT ANGIOGRAPHY OF THE ABDOMINAL AORTA WITH RUNOFF TO THE ANKLES HISTORY: Abnormal lower extremity duplex TECHNIQUE: Arterial injection is performed during imaging to evaluate the aorta and runoff vessels to the ankles. MIP and volume rendering imaging has also been performed. All images are reviewed. All C T scans at [facility] use at least one of these dose optimization techniques: automated exposu re control; mA and/or kV adjustment per patient size (includes targeted exams where dose is matched t o clinical indication); or iterative reconstruction. Contrast: Omnipaque 350; 95 mL IV. DLP: 613.01 mGy.cm COMPARISON: Arterial duplex 10/13/2022. Prior CT angiogram 03/28/2007 Chronic emphysema. Mild cardiomegaly. Small hiatal hernia. Abdominal aorta: Scattered calcified plaque. Moderate diffuse intimal thickening. Mild stenosis dista lly but no aneurysm. Maximum diameter distal aorta 9.8 mm. Small amount of atherosclerotic disease at the origins of the SMA and celiac axis. No high-grade stenosis. Increasing plaque moderate stenosis involving the mid SMA. Heavy calcified plaque in the splenic artery with near complete occlusion. No renal artery stenosis or occlusion. Patent YARITZA. RIGHT lower extremity arterial system: Moderate plaque burden at the origin RIGHT common iliac artery . Calcified plaque and intimal thickening. Patient has a known RIGHT common iliac artery stent with o cclusion at the proximal stent. In the mid to distal stent no vascularity or enhancement is identifie d. Stent appears completely occluded. There is reconstitution of the femoral artery. Internal iliac a rtery is patent. High-grade stenosis proximal SFA at 80%. Additional multi focal areas of stenosis an d probably occlusions throughout the entire SFA with intermittent visualization. Deep profunda modera tely calcified. Multifocal disease in the femoral artery through the popliteal artery. Heavy calcifie d plaque anterior tibial artery in the tibial peroneal trunk. Intermittent visualization. There is ex tensive plaque obscuring the lumen. Very small three-vessel runoff to the ankle. LEFT lower extremity arterial system: Large amount of thrombus involving the proximal iliac artery. T here is also very mild dilatation up to 12 mm. Greater than 80% stenosis common iliac artery There i s an ulcerated plaque in the mid common iliac artery. Ulcerated plaque measures 8 mm. Heavy calcified plaque in the mid to distal common iliac artery with stenoses. LEFT external iliac artery stent is p robably patent. Heavily diseased internal iliac artery. Extensive calcified plaque with areas of sten osis in the femoral artery. Multifocal high-grade stenosis and possible occlusion throughout the SFA to the popliteal artery. Marked atherosclerotic plaque in the popliteal artery. Calcified plaque thre e-vessel runoff to the ankle. Anterior tibial artery is heavily diseased and occluded. Runoff to the ankle via the peroneal and posterior tibial artery. No acute liver, gallbladder spleen. Negative pancreas. No bile duct dilatation. Normal adrenal glands . Normal renal enhancement. There is a mixture of contrast in the IVC and SVC and LEFT renal vein. Th is is probably all due to the arterial phase of injection not thrombus. There are no secondary findin gs to suggest renal vein thrombosis. No GI tract obstruction. Normal appendix. Moderate diverticulosi s. No ascites or adenopathy. Saeed catheter in urinary bladder. Bladder wall is markedly thickened pr ostate is enlarged. Inguinal canals are patent bilaterally containing fat. CT/CT angio abd aorta runof [id number] IMPRESSION: 1. Diffuse moderate progression of atherosclerotic disease since 2006. 2. Mild stenosis distal abdominal aortic . Increasing atherosclerotic disease in the mesenteric arteries, greatest involving the SMA but no occlusion. 3. Occluded mid RIGHT common iliac artery stent. 4. High-grade stenosis proximal RIGHT SFA 80%. 5. Multifocal areas of stenosis and occlusion throughout the superficial femor al arteries bilaterally. 6. Intermittent arterial runoff to the ankle with heavily calcified three-vess el disease on the RIGHT. 7. Large amount of thrombus in the proximal LEFT iliac artery with additional ulcerated plaque measuring 8 mm. High-grade stenosis proximal LEFT common iliac artery, 80%. 8. Extensive plaque throughout the LEFT common internal artery. 9. Multifocal areas of stenosis in the LEFT femoral and SFA. 10. Nonvisualization and probable occlusion LEFT anterior tibial artery. Minim al small vessel runoff to the ankle via the posterior and peroneal arteries. 11. Normal enhancement of the kidneys.
[2022-11-22] MEDS: iohexol 350 mg/mL 500 mL Btl (per mL) IV (06:54)
== END 2022-11-22 06:05 | disposition home or self-care (01) ==
LOC: RAD 06:06
PROVIDERS: PCP Family Medicine; Visit Provider Internal Medicine
DX: I73.9 Peripheral vascular disease, unspecified (principal); I25.10 Atherosclerotic heart disease of native coronary artery without angina pectoris; I35.0 Nonrheumatic aortic (valve) stenosis; I74.5 Embolism and thrombosis of iliac artery
CPT/HCPCS: 75635; Q9967

== ENCOUNTER → 2023-01-03 14:02 | Outpatient (BNVA) | payer MEDICARE, SELFPAY | PROVIDERS: PCP Family Medicine; Visit Provider Internal Medicine Pulmonary Disease | DX: J43.2 Centrilobular emphysema (principal); J30.2 Other seasonal allergic rhinitis; Z87.891 Personal history of nicotine dependence; R53.1 Weakness; I73.9 Peripheral vascular disease, unspecified; I10 Essential (primary) hypertension; I25.10 Atherosclerotic heart disease of native coronary artery without angina pectoris; I65.29 Occlusion and stenosis of unspecified carotid artery; E78.2 Mixed hyperlipidemia; R07.9 Chest pain, unspecified; I62.9 Nontraumatic intracranial hemorrhage, unspecified | CPT/HCPCS: 99214 ==

== ENCOUNTER → 2023-03-07 15:23 | Outpatient (BNVA) | payer MEDICARE, SELFPAY | PROVIDERS: PCP Family Medicine; Visit Provider Internal Medicine | DX: I10 Essential (primary) hypertension (principal); I25.10 Atherosclerotic heart disease of native coronary artery without angina pectoris; I65.29 Occlusion and stenosis of unspecified carotid artery; E78.2 Mixed hyperlipidemia; J43.2 Centrilobular emphysema; R07.9 Chest pain, unspecified; I73.9 Peripheral vascular disease, unspecified; Z87.891 Personal history of nicotine dependence | CPT/HCPCS: 99214 ==

== ENCOUNTER 2023-04-21 10:59 | Outpatient (CLI) | payer MEDICARE, SELFPAY ==
--- NOTE | 2023-04-21 11:06 | XR_ITS ---
WS: [id number] Chest 2 views, 04/21/2023 Clinical Data: Cough, hemoptysis Comparison: Two-view chest, 02/01/2022 Findings: There are patchy bilateral lower lobe opacities which could represent atelectasis and/or pn eumonia. No nodules, masses or effusions are seen. The heart is normal. The pulmonary vascularity is not increased. No pneumothorax is seen. The diaphragms are flattened. The aortic arch shows calcifica tion. Impression: 1. Patchy bilateral lower lobe opacities which could represent atelectasis and/or pneumonia. 2. Atherosclerosis and hyperinflation.
== END 2023-04-21 11:00 | disposition home or self-care (01) ==
PROVIDERS: PCP Family Medicine; Visit Provider Family Medicine
DX: R04.2 Hemoptysis (principal); R05.9 Cough, unspecified
CPT/HCPCS: 71046; 87070; 87075; 87077; 87184; 87205

== ENCOUNTER 2023-05-23 14:49 | Outpatient (CLI) | payer MEDICARE, SELFPAY ==
--- NOTE | 2023-05-23 15:00 | CT_ITS ---
WS: [id number] CT chest w con* [id number] HISTORY: Hemoptysis TECHNIQUE: Axial imaging performed through the thorax. Coronal and sagittal reformats are submitted. All CT scans at [facility] use at least one of these dose optimization techniques: automated exposure control; mA and/or kV adjustment per patient size (includes targeted exams where dose is mat ched to clinical indication); or iterative reconstruction. CONTRAST: Omnipaque 350; 100 mL IV. DLP: 373.45 mGy.cm COMPARISON: 11/24/2020 and 06/28/2018, chest radiograph 04/21/2023 Lungs and central airway: Hyperinflated lungs with centrilobular emphysema. Mild dependent changes at the lung bases. No mass or nodule. Linear areas of increased attenuation at the lung bases most cons istent with atelectasis which may be chronic. Greatest at the RIGHT lung base. Very similar to the pr ior CT of 11/24/2020. Focal areas of scar in the central RIGHT upper lobe. Pleura: Normal. No pleural effusion. Heart and pericardium: Normal size heart with no pericardial effusion. Mediastinum and katie: Small benign-appearing lymph nodes. Vessels: Moderate atherosclerotic plaque within the aorta. LEFT vertebral artery arises directly from the aortic arch. Normal sized pulmonary artery. Chest wall and lower neck: No soft tissue masses. Upper abdomen: Small hiatal hernia. No adrenal mass. Slightly contracted gallbladder as visualized. S plenic artery calcifications. Osseous structures: Mild increase in the thoracic kyphosis. No destructive bone lesions. IMPRESSION: 1. Chronic emphysema with areas of fibrosis and scarring. 2. No pneumonia. 3. Linear opacification at the RIGHT lung base is similar to the study from 11/24/2020 and most consist ent with chronic atelectasis. 4. No adenopathy.
[2023-05-23 15:19] LABS: Blood Urea Nitrogen 16 mg/dL (8-23)
[2023-05-23] MEDS: iohexol 350 mg/mL 500 mL Btl (per mL) IV (15:29)
== END 2023-05-23 14:50 | disposition home or self-care (01) ==
LOC: RAD 14:49
PROVIDERS: PCP Family Medicine; Visit Provider Family Medicine
DX: R04.2 Hemoptysis (principal); J43.2 Centrilobular emphysema
CPT/HCPCS: 71260; 82565; 84520; Q9967

== ENCOUNTER → 2023-07-05 12:53 | Outpatient (BNVA) | payer MEDICARE, SELFPAY | PROVIDERS: PCP Family Medicine; Visit Provider Internal Medicine | DX: I10 Essential (primary) hypertension (principal); I25.10 Atherosclerotic heart disease of native coronary artery without angina pectoris; I65.29 Occlusion and stenosis of unspecified carotid artery; E78.2 Mixed hyperlipidemia; J43.2 Centrilobular emphysema; R07.9 Chest pain, unspecified; I73.9 Peripheral vascular disease, unspecified; Z87.891 Personal history of nicotine dependence | CPT/HCPCS: 99214 ==

== ENCOUNTER → 2023-09-05 12:44 | Outpatient (BNVA) | payer MEDICARE, SELFPAY | PROVIDERS: PCP Family Medicine; Visit Provider Internal Medicine Pulmonary Disease | DX: J43.2 Centrilobular emphysema (principal); R06.00 Dyspnea, unspecified; J30.2 Other seasonal allergic rhinitis | CPT/HCPCS: 99214 ==

== ENCOUNTER → 2023-09-19 16:30 | Outpatient (BNVA) | payer MEDICARE, SELFPAY | PROVIDERS: PCP Family Medicine; Visit Provider Family Medicine | DX: R50.9 Fever, unspecified (principal) | CPT/HCPCS: 87400; 87426 ==

== ENCOUNTER → 2024-01-10 15:24 | Outpatient (BNVA) | payer MEDICARE, SELFPAY | PROVIDERS: PCP Family Medicine; Visit Provider Internal Medicine Cardiovascular Disease | DX: I73.9 Peripheral vascular disease, unspecified (principal); I25.10 Atherosclerotic heart disease of native coronary artery without angina pectoris; I10 Essential (primary) hypertension; J43.2 Centrilobular emphysema; Z87.891 Personal history of nicotine dependence | CPT/HCPCS: 99214 ==

== ENCOUNTER → 2024-01-13 09:43 | Outpatient (BNVA) | payer MEDICARE, SELFPAY | PROVIDERS: PCP Family Medicine; Visit Provider Family Medicine | DX: Z51.81 Encounter for therapeutic drug level monitoring (principal); R73.09 Other abnormal glucose; E55.9 Vitamin D deficiency, unspecified; E53.8 Deficiency of other specified B group vitamins; N40.1 Benign prostatic hyperplasia with lower urinary tract symptoms; R33.8 Other retention of urine; R53.81 Other malaise; R53.83 Other fatigue; Z79.899 Other long term (current) drug therapy | CPT/HCPCS: 80053; 82306; 82607; 83036; 84153; 84443; 85025 ==

== ENCOUNTER → 2024-02-15 08:57 | Outpatient (BNVA) | payer MEDICARE, SELFPAY | PROVIDERS: PCP Family Medicine; Visit Provider Nurse Practitioner Family | DX: I73.9 Peripheral vascular disease, unspecified (principal) | CPT/HCPCS: 99214 ==

== ENCOUNTER 2024-02-26 13:19 | Emergency (ER) | payer MEDICARE, SELFPAY ==
[2024-02-26] VITALS (12 sets, daily range): BP systolic 120–177; BP diastolic 64–91; PULSE 98–112; RESP 15–22; TEMP 36.6; O2SAT 90–98; BMI 27.3
--- NOTE | 2024-02-26 13:44 | CTR_ITS ---
PROCEDURE INFORMATION: Exam: CTA Chest With Contrast Exam date and time: 02/26/2024 3:24 PM Age: 74 years old Clinical indication: Other: Coughing up blood; Additional info: Hemoptysis on plavix TECHNIQUE: Imaging protocol: Computed tomographic angiography of the chest with contrast. Exam focused on the arteries. 3D rendering (Not supervised by radiologist): MIP and/or 3D reconstructed images were created by the technologist. Radiation optimization: All CT scans at this facility use at least one of these dose optimization techniques: automated exposure control; mA and/or kV adjustment per patient size (includes targeted exams where dose is matched to clinical indication); or iterative reconstruction. Contrast material: OMNI 350; Contrast volume: 78 ml; Contrast route: INTRAVENOUS (IV); COMPARISON: CT angio chest PE protcl [id number] 06/28/2018 9:42 PM RADIATION DOSE METRICS: Total DLP (mGy-cm): 425.71 FINDINGS: Pulmonary arteries: No evidence of pulmonary thromboembolism. Aorta: Moderate atherosclerosis without evidence of aneurysmal dilatation or dissection of the thoracic aorta. Thyroid: Grossly unremarkable. Lungs: Severe emphysematous changes. There are left upper lobe airspace opacities compatible with pneumonia. There are areas of confluent opacities and developing consolidation. Pleural spaces: No evidence of pleural effusion. No pneumothorax. Heart: No cardiomegaly. No pericardial effusion. Mediastinal space: No evidence of mediastinal mass, fluid collection or hematoma. Lymph nodes: No mediastinal or hilar adenopathy. Bones/joints: No evidence of acute fracture or aggressive osseous lesion. Soft tissues: No evidence of fluid collection or hematoma in the superficial soft tissues. Other findings: No evidence of acute abnormality in the upper abdomen. Mild narrowing of the celiac trunk and proximal SMA secondary to mixed atherosclerotic plaque. There is extensive atherosclerosis of the visualized upper abdominal aorta. Consider follow-up outpatient vascular evaluation. CT/CT angio chest PE protcl [id number] IMPRESSION: 1. No evidence of PE or acute aortic abnormality. 2. Left upper lobe pneumonia. 3. Severe emphysematous changes. The presence of pulmonary emphysema on CT is an independent risk factor for lung cancer. In the absence of a history or active diagnosis of lung cancer, it is recommended that this patient with emphysema be evaluated for enrollment in a low dose CT lung cancer screening program.
--- NOTE | 2024-02-26 13:46 | ECG_ITS ---
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 Measurements Intervals [place] Rate: 101 P: 15 OR: 187 QRS: -53 QRSD: 92 T: 115 QT: 290 QTc: 376 Interpretive Statements SINUS TACHYCARDIA LEFT ANTERIOR FASCICULAR BLOCK [QRS AXIS <= -45, QR IN I, RS IN II] POSSIBLE ANTERIOR MYOCARDIAL INFARCTION , PROBABLY OLD [30 ms Q WAVE IN V3/V4, OR R < 0.2 mV IN V4] Compared to ECG 02/01/2022 15:38:12 Myocardial infarct finding now present Sinus rhythm no longer present Electronically Signed On 02-27-2024 14:07:20 CDT by Preston Whitaker M.D. [email or web address]
--- NOTE | 2024-02-26 13:48 | W.ED.GENADLT ---
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 He states he noted that his urine seemed to be pink-tinged at times in the past but yesterday he noted a little bit more darker pink and a few small clots. He is also noted that he coughed up specks and small amounts of blood last night and again today. He does have a history of peripheral vascular disease and is on Plavix due to having previous ocular surgery last year on his right femoral as well as his left femoral arteries. He does not have any known history of congestive heart failure or coronary artery disease. He no longer smokes having discontinued approximately 5 years ago. He denies any blood or black tarry stool or any other bleeding issues. He apparently recently had COVID-19 from review of his past records. He has an indwelling Saeed due to BPH and urinary retention Associated symptoms: Reports dyspnea; Deny chest pain, headache(s), nausea, rash, palpitations, syncope or vomiting Review of Systems Const: Denies: fever(s) or chills ENMT: Denies: odynophagia, nasal discharge or nasal congestion Card: Denies: chest pain, palpitations, irregular heart rhythm, lightheadedness, syncope or pre-syncope Resp: Reports: dyspnea, productive cough, wheezing and hemoptysis GI: Denies: abdominal pain, nausea, vomiting or hematemesis : Reports: hematuria Musc: Denies: neck pain, back pain, extremity pain or extremity swelling Skin/Breast: Denies: rash or pruritus Neuro: Denies: headache(s), numbness in extremities or weakness in extremities Jose/Lymph: Reports: easy bruising and easy bleeding [facility] ED PFSH: Medical History Elevated PSA BPH (benign prostatic hyperplasia) HTN (hypertension) CAD (coronary atherosclerotic disease) Tobacco abuse PAD (peripheral artery disease) Carotid stenosis Hyperlipemia, mixed TIA (transient ischemic attack) Chronic constipation COPD (chronic obstructive pulmonary disease) S/P angiogram of extremity Cataract (lens) fragments in eye following cataract surgery Surgical History S/P femoral-femoral bypass surgery Patient unclear of exact surgery done - Right S/P inguinal hernia repair S/P routine circumcision Family History Mother Cancer PANCREATIC CAD (coronary artery disease) Father Lung disease Social History Smoking and tobacco/nicotine status: former use of tobacco/nicotine Quit status (tobacco/nicotine): has quit using Year quit tobacco: 2016 [id number] Second hand smoke exposure: Yes Alcohol intake: former Year of sobriety/quit date alcohol: 1986 Substance/Drug Use: never Lives independently: Yes Housing: House Marital status: Number of children: 0 Highest education level completed: Some College, No Degree service: Yes branch: [email or web address] Current occupational status: retired Pets and animals: No Do you think of yourself as: Straight/Heterosexual Current gender identity: Male Dominga/Scientology: Other Physical Exam Narrative: EXAM NARRATIVE: He is alert makes good eye contact answers questions in a goal-directed fashion. Is able to speak without significant dyspnea. Const: COMMON NORMALS: no acute distress, average body habitus, patient oriented x3 and alert GENERAL APPEARANCE: cooperative HENMT: COMMON NORMALS: normocephalic, Normal nasal mucous membranes and turbinates present and moist oral mucous membranes HEAD & SCALP: normocephalic NOSE: Normal nasal mucous membranes and turbinates present Eye: COMMON NORMALS: Equal, round and reactive pupils present and EOMs intact bilaterally PUPIL: Yes Equal, round and reactive pupils present Neck/C-Spine: COMMON NORMALS: full ROM, no lymphadenopathy and no JVD Chest: COMMONS NORMALS: normal inspection of the chest and normal palpation of entire chest wall Resp: COMMON NORMALS: normal respiratory effort and No use of accessory muscles AUSCULTATION: crackles, rhonchi and wheezes Cardio: COMMON NORMALS: no JVD, regular rate, regular rhythm, No murmurs present (Cardio) and Peripheral pulses 2+ throughout RATE: regular rate RHYTHM: regular rhythm PERIPHERAL PULSES: Peripheral pulses 2+ throughout GI: COMMON NORMALS: Normal to inspection, nondistended, normoactive bowel sounds present and Soft to palpation PALPATION: Yes Soft to palpation : COMMON NORMALS: Yes no CVA tenderness BLADDER/KIDNEY EXAM: Yes catheter in place and Yes no CVA tenderness Back/Pelvis: COMMON NORMALS: no CVA tenderness, thoracic and lumbar spine normal to inspection, no thoracic nor lumbar tenderness and thoraco-lumbar ROM normal Extremity: COMMON NORMALS: normal to inspection, full ROM, capillary refill normal, no calf tenderness and no pedal edema Neuro: COMMON NORMALS: patient oriented x3, moves all extremities, no focal motor deficits and no sensory deficits noted SENSORIUM/ORIENTATION: Yes alert Psych: COMMON NORMALS: mental status grossly normal Skin: COMMON NORMALS: no rashes or lesions noted, no wounds and no petechiae GENERAL SKIN EXAM: no rashes or lesions noted Course Reevaluation(s): Reevaluation #1: Patient's bladder scan reveals no evidence of significant urinary retention therefore catheter is functioning well. He does have a urinalysis which although a cath specimen from a chronic indwelling Saeed combined with his clinical picture and nitrite positive findings suggest possible occult infection. Time: 15:22 Reevaluation #2: Patient states he is feeling a bit better. He states is still coughing but is not coughing anymore bloody sputum. I informed him of findings that suggest he has a pneumonia in his left lung. We talked about inpatient care. He states he would prefer to be treated at home with outpatient antibiotics. Will give him his fluids and his azithromycin in addition to the ceftriaxone he is also ready received and then revisit the topic of admission versus home care after that. Time: 16:37 Reevaluation #3: Patient still states he feels improved. He is receiving his IV fluids and azithromycin. We discussed continued observation and or inpatient care but he still feels comfortable enough with going home on oral antibiotics. We discussed that he could have deterioration in his clinical condition and he acknowledges that but he states he will be able to come back if that occurs. Patient is certainly not impaired and has intact decision making capacity and has certainly reasonable and logical thought patterns. We will continue him on oral doxycycline for the next 10 days. Because of his hemoptysis albeit improving since in the emergency department as well as his hematuria I have advised him to stop his Plavix for the next 24 hours and then resume it. He is taking Plavix because of peripheral vascular disease and I will be at there is a slight increase in risk I think it is minimal and certainly want to ensure that he does not have any ongoing bleeding. He acknowledges our discussion and voices understanding. Time: 18:24 Vital Signs: Vital signs: Vital Signs Temperature 98 F 02/26/24 13:25 Pulse Rate 100 02/26/24 18:00 Respiratory Rate 20 H 02/26/24 18:00 Blood Pressure 166/80 02/26/24 18:00 Pulse Oximetry 97 02/26/24 18:00 Oxygen Delivery Me thod Nasal Cannula 02/26/24 18:00 Oxygen Flow Rate 3 02/26/24 18:00 MDM - General Adult Medical Decision Making This patient presented with a history of a hemoptysis as well as hematuria as noted in the HPI. Patient has a longstanding history of oxygen dependent COPD and emphysema also urinary retention requiring chronic chronic indwelling Saeed catheter. Workup ensued to ensure no significant bleeding diathesis. Hemoglobin hematocrit are reassuring as well as his platelet count and coagulation factors. He did have a leukocytosis and a CT obtained to evaluate his hemoptysis revealed left upper lobe infiltrate consistent with pneumonia. He also has nitrite positive urine which in the setting of his hematuria likely represents a concomitant infection. The patient received intravenous fluids, intravenous antibiotics to cover most common organisms and we had a detailed discussion about inpatient versus observation care. He had he acknowledged her discussion but preferred to be discharged home for continued care on oral antibiotics. He is competent to make such decisions and we discussed risks and benefits which she also acknowledged. He is being discharged with appropriate prescriptions and he is welcome to return at any time and he acknowledged that as well. Lab Data I reviewed the patient's lab results. 02/26/24 14:02 02/26/24 14:41 Radiology Impressions Chest CTA 02/26/24 13:44 IMPRESSION: 1. No evidence of PE or acute aortic abnormality. 2. Left upper lobe pneumonia. 3. Severe emphysematous changes. The presence of pulmonary emphysema on CT is an independent risk factor for lung cancer. In the absence of a history or active diagnosis of lung cancer, it is recommended that this patient with emphysema be evaluated for enrollment in a low dose CT lung cancer screening program. Laboratory Results WBC 15.89 10^3/uL (3.29-11.43) H 02/26/24 14:02 RBC 4.60 10^6/uL (3.85-5.65) 02/26/24 14:02 Hgb 14.40 g/dL (11.27-16.99) 02/26/24 14:02 Hct 43.6 % (37-53) 02/26/24 14:02 MCV 94.8 fl (82-101) 02/26/24 14:02 MCH 31.3 pg (27-33) 02/26/24 14:02 MCHC 33.0 g/dL (30-55) 02/26/24 14:02 RDW 12.9 % (12.1-15.1) 02/26/24 14:02 Plt Count 255 10^3/cmm (157-399) 02/26/24 14:02 MPV 9.4 fL (7.4-10.4) 02/26/24 14:02 Neut % (Auto) 87.5 % 02/26/24 14:02 Lymph % (Auto) 5.8 % 02/26/24 14:02 [place] % (Auto) 4.7 % 02/26/24 14:02 Eos % (Auto) 1.3 % 02/26/24 14:02 Baso % (Auto) 0.3 % 02/26/24 14:02 Neut # (Auto) 13.91 10^3/uL (1.8-7.7) H 02/26/24 14:02 Lymph # (Auto) 0.9 10^3/uL (0.8-4.8) 02/26/24 14:02 [place] # (Auto) 0.8 10^3/uL (0.2-0.9) 02/26/24 14:02 Eos # (Auto) 0.2 10^3/uL (0.0-0.8) 02/26/24 14:02 Baso # (Auto) 0.1 10^3/uL (0.0-0.1) 02/26/24 14:02 Nucleated RBC % (auto) 0 % 02/26/24 14:02 Nucleated RBCs # 0.0 /100WBC 02/26/24 14:02 PT 13.50 SECONDS (12.1-14.9) 02/26/24 14:02 INR 1.00 (0.8-1.2) 02/26/24 14:02 APTT 30.1 SECONDS (23.9-36.7) 02/26/24 14:02 Sodium 139 mmol/L (136-145) 02/26/24 14:41 Potassium 4.6 mmol/L (3.5-5.1) 02/26/24 14:41 Chloride 102 mmol/L (98-107) 02/26/24 14:41 Carbon Dioxide 24 mmol/L (22-29) 02/26/24 14:41 Anion Gap 17.6 (5-19) 02/26/24 14:41 BUN 17 mg/dL (8-23) 02/26/24 14:41 Creatinine 0.7 mg/dL (0.7-1.2) 02/26/24 14:41 GFR Calculation Not Reportable 02/26/24 14:41 Glucose 134 mg/dL (65-115) H 02/26/24 14:41 Calculated Osmolality 292 mOsm/kg (285-295) 02/26/24 14:41 Lactic Acid 2.7 mmol/L (0.5-2.2) H 02/26/24 14:02 Lactic Acid (Sepsis) 1.5 mmol/L (0.5-2.2) 02/26/24 17:55 Calcium 8.9 mg/dL (8.5-10.5) 02/26/24 14:41 Total Bilirubin 0.5 mg/dL (0.15-1.2) 02/26/24 14:41 AST 15 U/L (0-40) 02/26/24 14:41 ALT 9 U/L (0-41) 02/26/24 14:41 Alkaline Phosphatase 100 U/L (40-130) 02/26/24 14:41 Total Protein 6.7 g/dL (6.6-8.7) 02/26/24 14:41 Albumin 4.1 g/dL (3.5-5.2) 02/26/24 14:41 Globulin 2.6 g/dL (1.3-4.6) 02/26/24 14:41 Urine Color Red (Yellow) A 02/26/24 14:12 Urine Appearance Turbid (CLEAR) A 02/26/24 14:12 Urine pH 5.0 (5-7) 02/26/24 14:12 Ur Specific [place] 1.023 (1.005-1.030) 02/26/24 14:12 Urine Protein 2+ (Negative) A 02/26/24 14:12 Urine Glucose (UA) Negative (Normal) 02/26/24 14:12 Urine Ketones Negative (Negative) 02/26/24 14:12 Urine Blood 3+ (Negative) A 02/26/24 14:12 Urine Nitrate Positive (Negative) A 02/26/24 14:12 Urine Bilirubin Negative (Negative) 02/26/24 14:12 Urine Urobilinogen 1.0 mg/dL (Negative) 02/26/24 14:12 Ur Leukocyte Esterase 2+ (Negative) A 02/26/24 14:12 Urine RBC >100 /hpf (0-2) H 02/26/24 14:12 Urine WBC >100 /hpf (0-5) H 02/26/24 14:12 Ur Squamous Epith Cells 0-5 /hpf (0-5) 02/26/24 14:12 Amorphous Sediment Not Reportable 02/26/24 14:12 Urine Bacteria 4+ /hpf (NONE) H 02/26/24 14:12 Hyaline Casts 5.36 /lpf 02/26/24 14:12 Coarse Granular Casts 5-10 /lpf H 02/26/24 14:12 Urine Mucus Trace /hpf 02/26/24 14:12 All radiology interpretation(s) finalized by discharge EKG Data EKG 1: I personally reviewed and interpreted this EKG as follows: Interpretation: Resting EKG reveals sinus tachycardia 101 bpm. He has a normal UT interval, QRS duration, corrected QT interval. Leftward axis consistent with a left anterior [place] block. Borderline sinus tachycardia. Nonspecific ST-T wave changes noted in the lateral precordial leads. Computer generated interpretation: Chest CTA 02/26/24 13:44 IMPRESSION: 1. No evidence of PE or acute aortic abnormality. 2. Left upper lobe pneumonia. 3. Severe emphysematous changes. The presence of pulmonary emphysema on CT is an independent risk factor for lung cancer. In the absence of a history or active diagnosis of lung cancer, it is recommended that this patient with emphysema be evaluated for enrollment in a low dose CT lung cancer screening program. Discharge Plan Discharge Patient Disposition: Home Clinical Impression: PAD (peripheral artery disease) Left upper lobe pneumonia Qualifiers: Pneumonia type: due to unspecified organism Qualified Code(s): J18.9 - Pneumonia, unspecified organism Urinary tract infection Qualifiers: Urinary tract infection type: catheter-associated UTI Indwelling urinary catheter type: indwelling urethral catheter Encounter type: initial encounter Qualified Code(s): T83.511A - Infection and inflammatory reaction due to indwelling urethral catheter, initial encounter COPD (chronic obstructive pulmonary disease) with emphysema Qualifiers: Emphysema type: unspecified Qualified Code(s): J43.9 - Emphysema, unspecified Condition: Stable Prescriptions: New doxycycline hyclate 100 mg capsule 100 mg PO BID 14 Days Qty: 28 0RF No Action force factor prostate PO guaifenesin [Mucinex] 600 mg tablet extended release 12hr 600 mg PO Q12H PRN (Reason: congestion) Qty: 90 3RF zinc gluconate 50 mg tablet 50 mg PO DAILY Qty: 30 0RF tamsulosin 0.4 mg capsule 0.4 mg PO DAILY Qty: 90 3RF (DME) Saeed catheter leg bag See Rx Instructions .Route .MEDSUPPLY Qty: 1 0RF Rx Instructions: As directed clopidogrel 75 mg tablet 75 mg PO DAILY Qty: 90 3RF amlodipine 2.5 mg tablet 2.5 mg PO DAILY Qty: 90 3RF ipratropium-albuterol 0.5 mg-3 mg(2.5 mg base)/3 mL solution for nebulization 3 ml inhalation Q4H PRN (Reason: wheezing) Qty: 90 3RF hydrocodone-acetaminophen 5-325 mg tablet 1 tab PO Q6H PRN (Reason: pain) 15 Days Qty: 30 0RF fluticasone propion-salmeterol [Advair Diskus] 500-50 mcg/dose blister with device 1 inh inhalation BID Qty: 60 6RF lisinopril 20 mg tablet See Rx Instructions .ROUTE .COMPLEX Qty: 180 2RF Dose Instruction: TAKE 1 TABLET BY MOUTH IN THE MORNING AND 1 IN THE EVENING ONLY IF BLOOD PRESSURE IS GREATER THAN 140/90 Rx Instructions: TAKE 1 TABLET BY MOUTH IN THE MORNING AND 1 IN THE EVENING ONLY IF BLOOD PRESSURE IS GREATER THAN 140/90 (DME) Battery Powered Concentrator [employer] w/ 10-16ft tubing See Rx Instructions .Route .MEDSUPPLY Qty: 1 0RF Rx Instructions: 3L/min Use as Directed latanoprost 0.005 % drops 1 drp ophthalmic (eye) BEDTIME Vitamin C 1,000 mg Tablet 1,000 mg PO DAILY Vitamin D3 25 mcg (1,000 unit) Capsule See Rx Instructions .ROUTE .COMPLEX Rx Instructions: 2,000 units po qam and 1,000 units qpm potassium gluconate 595 mg (99 mg) Tablet 595 mg PO BID@09,18 calcium 1 tab PO PRN Discharge Orders: Discharge ED (Routine); Ordered 02/26/24 Ordered By: Khris Mendieta Referrals: Tyrese Scherer MD [Primary Care Provider] - Discharge Diet: Usual diet Discharge Activity: Increase activity as tolerated and Oxygen as instructed Patient Instructions: Opioid Safety, Pain Management Activity Restrictions/Additional Instructions: As we discussed you have pneumonia of your left upper lung. He also have evidence of likely catheter associated urinary tract infection. Recommended that you stay in the hospital for at least observation to can ensure that you are improving however you have decided to be treated at home which is certainly not unreasonable. We recommend you increase your fluid intake to at least 2 quarts of water daily. We also recommend that you do not take your Plavix for the next 2 doses. Then resume your normal dosing. We have provided a prescription for antibiotics to take at home until they are completely gone. If it anytime your symptoms do not continue to improve, you have worsening symptoms you start coughing up more blood continue to have blood in your urine or other concerns return to this or the nearest emergency department immediately. Coding Level of Care Code ED Seam Stay Stitcher for Susie Falcon
[2024-02-26] MEDS: ipratropium-albuterol 3 mL Neb INHALATION (13:57)
[2024-02-26 14:13] LABS: Basophils # 0.1 10^3/uL (0.0-0.1); Basophils % 0.3 %; Eosinophils # 0.2 10^3/uL (0.0-0.8); Eosinophils % 1.3 %; Hematocrit 43.6 % (37-53); Lymphocytes # 0.9 10^3/uL (0.8-4.8); Lymphocytes % 5.8 %; Mean Corpuscular Hemoglobin 31.3 pg (27-33); Mean Corpuscular Volume 94.8 fl (82-101); Mean Platelet Volume 9.4 fL (7.4-10.4); Monocytes # 0.8 10^3/uL (0.2-0.9); Monocytes % 4.7 %; Neutrophils # 13.91 10^3/uL (1.8-7.7); Neutrophils % 87.5 %; Nucleated Red Blood Cells % 0 %; Platelet Count 255 10^3/cmm (157-399); Red Cell Distribution Width 12.9 % (12.1-15.1); White Blood Count 15.89 10^3/uL (3.29-11.43)
[2024-02-26 14:18] LABS: Charge for UA Resulting for Rev
[2024-02-26 14:20] LABS: Bilirubin Urine Negative (Negative); Blood Urine 3+ (Negative); Glucose Urine UA Negative (Normal); Ketones Urine Negative (Negative); Leukocyte Esterase Urine 2+ (Negative); Nitrate Urine Positive (Negative); Protein Urine 2+ (Negative); Specific Gravity, Urine 1.023 (1.005-1.030); Urine Appearance Turbid (CLEAR)
[2024-02-26 14:25] LABS: Bacteria Urine 4+ /hpf; Hyaline Casts Urine 5.36 /lpf; RBC Urine >100 /hpf (0-2); Squamous Epithelial Cell Urine 0-5 /hpf (0-5); WBC Urine >100 /hpf (0-5)
[2024-02-26 14:28] LABS: Partial Thromboplastin Time 30.1 SECONDS (23.9-36.7)
[2024-02-26 14:39] LABS: Urine Color Red (Yellow)
[2024-02-26 14:40] LABS: Add Urine Culture? Yes; Mucus Urine TRACE /hpf
--- NOTE | 2024-02-26 14:53 | PC.NURSE ---
pt bladder scan 10 at 1450. pt reports having very little to drink this morning.
[2024-02-26 15:04] LABS: Alanine Aminotransferase 9 U/L (0-41); Albumin Level 4.1 g/dL (3.5-5.2); Alkaline Phosphatase 100 U/L (40-130); Aspartate Amino Transferase 15 U/L (0-40); Blood Urea Nitrogen 17 mg/dL (8-23); Calcium 8.9 mg/dL (8.5-10.5); Carbon Dioxide 24 mmol/L (22-29); Chloride 102 mmol/L (98-107); Creatinine Clr Calc Pharmacy 81.8876; Globulin 2.6 g/dL (1.3-4.6); Glucose 134 mg/dL (65-115); Osmolality Calculated 292 mOsm/kg (285-295); Sodium 139 mmol/L (136-145); Total Bilirubin 0.5 mg/dL (0.15-1.2); Total Protein 6.7 g/dL (6.6-8.7)
[2024-02-26 15:05] LABS: Anion Gap 17.6 (5-19); Potassium 4.6 mmol/L (3.5-5.1)
[2024-02-26] MEDS: iohexol 350 mg/mL 500 mL Btl (per mL) IV (15:27)
[2024-02-26] MEDS: cefTRIAXone 2,000 mg SDV 2000 MG IVP (15:39)
[2024-02-26 15:49] LABS: Lactic Sepsis W/Reflex 2.7 mmol/L (0.5-2.2)
[2024-02-26 17:22] LABS: Reflex Lactate Order REFLEX LACTIC ORDERD
[2024-02-26] MEDS: lactated ringers 1,000 ML 999 ML IV (17:38)
[2024-02-26] MEDS: azithromycin 500 MG in sodium chloride 0.9% 250 ML 250 MG IV (17:42)
[2024-02-26 18:21] LABS: Lactic Acid level (Lactate) 1.5 mmol/L (0.5-2.2)
== END 2024-02-26 19:07 | disposition home or self-care (01) ==
PROVIDERS: Emergency Provider Emergency Medicine; PCP Family Medicine
DX: I73.9 Peripheral vascular disease, unspecified (principal); J18.9 Pneumonia, unspecified organism; T83.511A Infection and inflammatory reaction due to indwelling urethral catheter, initial encounter; J43.9 Emphysema, unspecified; Z79.02 Long term (current) use of antithrombotics/antiplatelets; R00.0 Tachycardia, unspecified; Z87.891 Personal history of nicotine dependence; I10 Essential (primary) hypertension; I25.10 Atherosclerotic heart disease of native coronary artery without angina pectoris; E78.2 Mixed hyperlipidemia; Z86.73 Personal history of transient ischemic attack (TIA), and cerebral infarction without residual deficits
CPT/HCPCS: 71275; 80053; 81003; 81015; 83605; 85025; 85610; 85730; 87077; 87086; 87186; 93005; 94640; 96365; 96375; 99285; J0456; J0696; J7050; J7120; Q9967

== ENCOUNTER → 2024-08-20 13:06 | Outpatient (BNVA) | payer MEDICARE, SELFPAY | PROVIDERS: PCP Family Medicine; Visit Provider Internal Medicine | DX: I10 Essential (primary) hypertension (principal); I25.10 Atherosclerotic heart disease of native coronary artery without angina pectoris; I65.29 Occlusion and stenosis of unspecified carotid artery; E78.2 Mixed hyperlipidemia; J43.2 Centrilobular emphysema; R07.9 Chest pain, unspecified; I73.9 Peripheral vascular disease, unspecified | CPT/HCPCS: 99214 ==

== ENCOUNTER → 2024-10-29 14:26 | Outpatient (BNVA) | payer MEDICARE, SELFPAY | PROVIDERS: PCP Family Medicine; Visit Provider Nurse Practitioner Family | DX: L72.0 Epidermal cyst (principal); L57.8 Other skin changes due to chronic exposure to nonionizing radiation; L57.0 Actinic keratosis | CPT/HCPCS: 17000; 99203 ==

== ENCOUNTER → 2024-11-19 13:21 | Outpatient (BNVA) | payer MEDICARE, SELFPAY | PROVIDERS: PCP Family Medicine; Visit Provider Dermatology | DX: L72.0 Epidermal cyst (principal); L73.8 Other specified follicular disorders; D48.5 Neoplasm of uncertain behavior of skin; L82.0 Inflamed seborrheic keratosis; L57.0 Actinic keratosis | CPT/HCPCS: 10060; 11104; 17000; 17110; 99213 ==

== ENCOUNTER → 2024-12-26 13:35 | Outpatient (BNVA) | payer MEDICARE, SELFPAY | PROVIDERS: PCP Family Medicine; Visit Provider Family Medicine | DX: N39.0 Urinary tract infection, site not specified (principal); R30.0 Dysuria; N40.1 Benign prostatic hyperplasia with lower urinary tract symptoms; R33.8 Other retention of urine | CPT/HCPCS: 81000; 87077; 87086; 87184 ==

== ENCOUNTER → 2025-02-06 12:12 | Outpatient (BNVA) | payer MEDICARE, SELFPAY | PROVIDERS: PCP Family Medicine; Visit Provider Family Medicine | DX: R30.0 Dysuria (principal); N39.0 Urinary tract infection, site not specified | CPT/HCPCS: 81000; 87086 ==

== ENCOUNTER → 2025-02-18 13:51 | Outpatient (BNVA) | payer MEDICARE, SELFPAY | PROVIDERS: PCP Family Medicine; Visit Provider Internal Medicine | DX: I10 Essential (primary) hypertension (principal); I25.10 Atherosclerotic heart disease of native coronary artery without angina pectoris; I65.29 Occlusion and stenosis of unspecified carotid artery; E78.2 Mixed hyperlipidemia; J43.2 Centrilobular emphysema; R07.9 Chest pain, unspecified; I73.9 Peripheral vascular disease, unspecified; Z87.891 Personal history of nicotine dependence | CPT/HCPCS: 99214 ==

== ENCOUNTER 2025-02-25 14:36 | Outpatient (CLI) | payer MEDICARE, SELFPAY ==
--- NOTE | 2025-02-25 14:45 | CTR_ITS ---
PROCEDURE INFORMATION: Exam: CT Chest With Contrast; Diagnostic Exam date and time: 02/25/2025 3:24 PM Age: 75 years old Clinical indication: Cough with hemorrhage; Emphysema, hemoptysis x 3 weeks ago TECHNIQUE: Imaging protocol: Diagnostic computed tomography of the chest with contrast. Radiation optimization: All CT scans at this facility use at least one of these dose optimization techniques: automated exposure control; mA and/or kV adjustment per patient size (includes targeted exams where dose is matched to clinical indication); or iterative reconstruction. Contrast material: OMNI 350; Contrast volume: 100 ml; Contrast route: INTRAVENOUS (IV); COMPARISON: CT angio chest PE protcl [id number] 02/26/2024 3:24 PM RADIATION DOSE METRICS: Total DLP (mGy-cm): 370.55 FINDINGS: Trachea: Unremarkable. Lungs: There are severe emphysematous changes throughout the lungs. There are stable bulla/blebs in the right upper lobe and right lower lobe. The previously seen airspace disease throughout the left upper lobe has resolved. There is an irregular nodular density in the right lower lobe measuring approximately 14 x 15 x 15 mm, increased in size since the prior study (previously measuring 9 x 12 x 12 mm). No dense focal consolidation is seen. Pleural spaces: No significant pleural effusion. No pneumothorax. Heart: Normal in size. No significant pericardial effusion. Coronary arteries: Moderate atherosclerotic calcification. Lymph nodes: Unremarkable. No enlarged lymph nodes. Vasculature: The thoracic aorta is normal in caliber. Moderate atherosclerotic calcification. No aortic aneurysm. Bones/joints: Intact. No acute fracture. There is mild dextroscoliosis of the thoracic spine with diffuse degenerative changes noted. Soft tissues: Unremarkable. Other findings: There is mild stable thickening of the left adrenal gland. Remaining visualized upper abdominal structures are unremarkable. CT/CT chest w con* [id number] IMPRESSION: 1. Severe emphysema. 2. Interval resolution of the left upper lobe pneumonia. No new focal infiltrate seen. 3. Irregular nodular density in the right lower lobe measuring 14 x 15 x 15 mm, increased in size since February 26, 2024 (previously measuring 9 x 12 x 12 mm). Follow-up CT Chest at 3 months, PET/CT, or biopsy is recommended. (Reference: [facility]) COMMENTS: The presence of pulmonary emphysema on CT is an independent risk factor for lung cancer. In the absence of a history or active diagnosis of lung cancer, it is recommended that this patient with emphysema be evaluated for enrollment in a low dose CT lung cancer screening program. REFERENCES: [facility] Cardoza, et al. Guidelines for Management of Incidental Pulmonary Nodules Detected on CT Images: From the [employer]ner Society 2017. Radiology. 2017;284(1):228-243.
[2025-02-25 15:21] LABS: Blood Urea Nitrogen 19 mg/dL (8-23)
[2025-02-25] MEDS: iohexol 350 mg/mL 500 mL Btl (per mL) IV (15:31)
== END 2025-02-25 14:37 | disposition home or self-care (01) ==
PROVIDERS: PCP Family Medicine; Visit Provider Internal Medicine
DX: R04.2 Hemoptysis (principal); R09.02 Hypoxemia; J98.4 Other disorders of lung; J43.9 Emphysema, unspecified; J43.2 Centrilobular emphysema; N40.1 Benign prostatic hyperplasia with lower urinary tract symptoms; R33.8 Other retention of urine; I73.9 Peripheral vascular disease, unspecified
CPT/HCPCS: 71260; 82565; 84520

== ENCOUNTER → 2025-02-28 14:42 | Outpatient (BNVA) | payer MEDICARE, SELFPAY | PROVIDERS: PCP Family Medicine; Referring Provider Family Medicine; Visit Provider Internal Medicine | DX: R91.1 Solitary pulmonary nodule (principal); F31.9 Bipolar disorder, unspecified; R06.09 Other forms of dyspnea; J44.9 Chronic obstructive pulmonary disease, unspecified; Z87.891 Personal history of nicotine dependence | CPT/HCPCS: 99215 ==

== ENCOUNTER 2025-03-19 12:41 | Outpatient (CLI) | payer MEDICARE, SELFPAY ==
[2025-03-19 13:08] VITALS: PULSE 76; RESP 18; O2SAT 91
== END 2025-03-19 12:42 | disposition home or self-care (01) ==
LOC: RT 12:43
PROVIDERS: PCP Family Medicine
DX: R06.00 Dyspnea, unspecified (principal); J98.8 Other specified respiratory disorders; R94.2 Abnormal results of pulmonary function studies
CPT/HCPCS: 94060; 94618; 94726; 94729; J7613

== ENCOUNTER → 2025-07-04 10:29 | Outpatient (BNVA) | payer MEDICARE, SELFPAY | PROVIDERS: PCP Family Medicine; Visit Provider Internal Medicine | DX: J44.9 Chronic obstructive pulmonary disease, unspecified (principal); R91.1 Solitary pulmonary nodule; R91.8 Other nonspecific abnormal finding of lung field; Z99.81 Dependence on supplemental oxygen; Z87.891 Personal history of nicotine dependence; T78.40XA Allergy, unspecified, initial encounter; X58.XXXA Exposure to other specified factors, initial encounter | CPT/HCPCS: 36415; 85025; 86003; 99214; Q3014 ==